=== PATIENT | male | born 1950 | race Caucasian/White ===

== ENCOUNTER → 2020-05-18 | Outpatient (CLI) | payer MEDICARE, OTHER ==
[2020-05-18 12:53] LABS: BASO % 0.5 % (0.0-1.0); EOS # 0.2 10^3/uL (0.0-0.5); EOS % 2.8 % (0.0-3.0); HEMATOCRIT 46.7 % (42.0-52.0); HEMOGLOBIN 15.4 g/dl (13.5-17.5); LYMPH # 1.5 10^3/uL (1.5-5.0); LYMPH % 25.6 % (24.0-44.0); MEAN CORPUSCULAR HEMOGLOBIN 29.7 pg (27.0-33.0); MONO # 0.6 10^3/uL (0.0-0.8); MONO % 10.6 % (0.0-5.0); NEUTROPHILS # 3.5 10^3/uL (1.5-8.5); NEUTROPHILS % 60.3 % (36.0-66.0); PLATELET COUNT, AUTOMATED 229 10^3/uL (150-450); RED BLOOD COUNT 5.19 10^6/uL (4.30-6.10); WHITE BLOOD COUNT 5.8 10^3/uL (4.0-10.0)
[2020-05-18 18:02] LABS: ALBUMIN 4.2 GM/DL (3.2-5.2); ALT/SGPT 36 U/L (12-78); BILIRUBIN,TOTAL 0.6 MG/DL (0.2-1.0); BLOOD UREA NITROGEN 27 MG/DL (7-18); CALCIUM LEVEL 9.1 MG/DL (8.8-10.2); CARBON DIOXIDE LEVEL 26 MEQ/L (21-32); CHLORIDE LEVEL 110 MEQ/L (98-107); CHOLESTEROL LEVEL 247 MG/DL (<200); CHOLESTEROL RISK RATIO 4.258 (<5); GLOMERULAR FILTRATION RATE > 60.0 (>49); GLUCOSE, FASTING 79 MG/DL (70-100); HDL CHOLESTEROL 58 MG/DL (>40); LDL CHOLESTEROL 159 MG/DL (<100); NON-HDL-C 189 MG/DL; POTASSIUM SERUM 4.2 MEQ/L (3.5-5.1); SODIUM LEVEL 144 MEQ/L (136-145); TRIGLYCERIDES LEVEL 151 MG/DL (<150)
== END ==
LOC: M WUC 10:28
PROVIDERS: ATTEND Nurse Practitioner Family
DX: I10 Essential (primary) hypertension (principal); Z13.220 Encounter for screening for lipoid disorders; Z12.5 Encounter for screening for malignant neoplasm of prostate
CPT/HCPCS: 17000; 17003; 36415; 80053; 80061; 85025; 90471; 90750; G0103; G0463

== ENCOUNTER 2021-05-26 05:36 | Emergency (ER) | payer MEDICARE, OTHER ==
[~2021-05-26] VITALS: Ht 180.3 cm; Wt 98.9 kg
[2021-05-26] MEDS ORDERED: CEPH500C PO (05:45)
[2021-05-26] MEDS ORDERED: NAPR-849 PO (05:45)
[2021-05-26] MEDS ORDERED: LISI10TA15 PO (05:45)
[2021-05-26 07:37] LABS: BASO % 0.3 % (0.0-1.0); EOS # 0.1 10^3/uL (0.0-0.5); EOS % 1.9 % (0.0-3.0); HEMATOCRIT 44.8 % (42.0-52.0); LYMPH # 1.2 10^3/uL (1.5-5.0); LYMPH % 16.4 % (24.0-44.0); MEAN CORPUSCULAR HEMOGLOBIN 29.7 pg (27.0-33.0); MEAN CORPUSCULAR HGB CONC 33.5 g/dl (32.0-36.5); MEAN CORPUSCULAR VOLUME 88.7 fl (80.0-96.0); MONO # 0.6 10^3/uL (0.0-0.8); MONO % 8.6 % (2.0-8.0); NEUTROPHILS # 5.3 10^3/uL (1.5-8.5); NEUTROPHILS % 72.5 % (36.0-66.0); PLATELET COUNT, AUTOMATED 238 10^3/uL (150-450); RED BLOOD COUNT 5.05 10^6/uL (4.30-6.10); WHITE BLOOD COUNT 7.3 10^3/uL (4.0-10.0)
[2021-05-26 08:03] LABS: ALBUMIN 3.9 GM/DL (3.2-5.2); ALT/SGPT 26 U/L (12-78); BILIRUBIN,DIRECT 0.1 MG/DL (0.0-0.2); BILIRUBIN,TOTAL 0.6 MG/DL (0.2-1.0); BLOOD UREA NITROGEN 22 MG/DL (7-18); C REACTIVE PROTEIN QUANTITATIV 2.52 MG/DL (0.00-0.30); CALCIUM LEVEL 8.9 MG/DL (8.8-10.2); CARBON DIOXIDE LEVEL 27 MEQ/L (21-32); CHLORIDE LEVEL 108 MEQ/L (98-107); CREATININE FOR GFR 1.05 MG/DL (0.70-1.30); GLOMERULAR FILTRATION RATE > 60.0 (>49); GLUCOSE, FASTING 91 MG/DL (70-100); POTASSIUM SERUM 4.2 MEQ/L (3.5-5.1); SODIUM LEVEL 140 MEQ/L (136-145); TOTAL PROTEIN 6.9 GM/DL (6.4-8.2)
[2021-05-26 09:15] LABS: ERYTHROCYTE SEDIMENTATION RATE 14 mm/hr (0-20)
[2021-05-26] MEDS ORDERED: DOXY-342 PO (10:00)
[2021-05-26 10:08] VITALS: BP 158/86
== END 2021-05-26 10:21 | disposition home or self-care (01) ==
LOC: M ED 05:36
DX: L03.032 Cellulitis of left toe (principal); I10 Essential (primary) hypertension

== ENCOUNTER → 2021-06-07 | Outpatient (CLI) | payer MEDICARE, OTHER ==
[~2021-06-07] MED LIST: CEPH500C PO; DOXY-342 PO; LISI10TA15 PO; NAPR-849 PO
[2021-06-07 12:40] LABS: BASO % 0.5 % (0.0-1.0); EOS # 0.2 10^3/uL (0.0-0.5); EOS % 3.1 % (0.0-3.0); HEMATOCRIT 44.1 % (42.0-52.0); HEMOGLOBIN 14.7 g/dl (13.5-17.5); LYMPH # 1.7 10^3/uL (1.5-5.0); LYMPH % 26.7 % (24.0-44.0); MEAN CORPUSCULAR HEMOGLOBIN 29.7 pg (27.0-33.0); MEAN CORPUSCULAR HGB CONC 33.3 g/dl (32.0-36.5); MEAN CORPUSCULAR VOLUME 89.1 fl (80.0-96.0); MONO # 0.6 10^3/uL (0.0-0.8); MONO % 9.2 % (2.0-8.0); NEUTROPHILS # 3.8 10^3/uL (1.5-8.5); NEUTROPHILS % 60.3 % (36.0-66.0); PLATELET COUNT, AUTOMATED 240 10^3/uL (150-450); RED BLOOD COUNT 4.95 10^6/uL (4.30-6.10); WHITE BLOOD COUNT 6.2 10^3/uL (4.0-10.0)
[2021-06-07 13:20] LABS: ALBUMIN 4.1 GM/DL (3.2-5.2); ALT/SGPT 27 U/L (12-78); BILIRUBIN,TOTAL 0.5 MG/DL (0.2-1.0); BLOOD UREA NITROGEN 22 MG/DL (7-18); CALCIUM LEVEL 9.1 MG/DL (8.8-10.2); CARBON DIOXIDE LEVEL 31 MEQ/L (21-32); CHLORIDE LEVEL 106 MEQ/L (98-107); CHOLESTEROL LEVEL 214 MG/DL (<200); CHOLESTEROL RISK RATIO 4.458 (<5); CREATININE FOR GFR 1.02 MG/DL (0.70-1.30); GLOMERULAR FILTRATION RATE > 60.0 (>49); GLUCOSE, FASTING 80 MG/DL (70-100); HDL CHOLESTEROL 48 MG/DL (>40); LDL CHOLESTEROL 122 MG/DL (<100); NON-HDL-C 166 MG/DL; POTASSIUM SERUM 4.5 MEQ/L (3.5-5.1); SODIUM LEVEL 141 MEQ/L (136-145); TRIGLYCERIDES LEVEL 220 MG/DL (<150)
== END ==
LOC: M WUC 08:54
PROVIDERS: ATTEND Nurse Practitioner Family
DX: I10 Essential (primary) hypertension (principal); Z12.5 Encounter for screening for malignant neoplasm of prostate; Z13.220 Encounter for screening for lipoid disorders
CPT/HCPCS: 36415; 80053; 80061; 85025; G0103

== ENCOUNTER 2021-06-16 10:33 | Inpatient (IN) | payer MEDICARE, OTHER ==
[~2021-06-16] VITALS: Ht 180.3 cm; Wt 98.4 kg
--- OUTSIDE RECORDS SUMMARY | 2021-06-16 10:40 | CCD | Continuity of Care Document ---
Author Author Hair PEREZ DPM Organization Unknown Address [address] [place] [address] Phone [phone] Care Team Providers Care Seismic Plotter Name Role Phone [facility] AUTM Problems Active Problems Provider Date Essential hypertension Onset: Social History Type Date Description Comments Sex Unknown Tobacco Use Start: Unknown Never Smoked Cigarettes Tobacco Use Start: Unknown Never Smoked Cigars Tobacco Use Start: Unknown Never Smoked A Pipe Tobacco Use Start: Unknown Never Used Smokeless Tobacco Tobacco Use Start: Unknown Patient has never smoked Allergies and adverse reactions Description No Known Drug Allergies Medications Active Medications SIG Qnty Indications Ordering Provide r Date Lisinopril 10mg Tablets Unknown Hydrochlorothiazide 12.5mg Tablets Unknown Naproxen 375mg Tablets Unknown Immunizations Description No Information Available Vital Signs Description No Information Available Results Description No Information Available Procedures Date Code Description Status 06/15/2021 85127 Office/Outpatient New Low MDM 30 -44 Minutes Completed Medical Devices Description No Information Available Encounters Type Date Location Provider Dx Diagnosis Office Visit 06/15/2021 2:00p [facility] Podiatry Je Perez DPM L03.032 Cellulitis of left toe Assessments Date Code Description Provider 06/15/2021 L03.032 Cellulitis of left toe Je elise DPM Plan of Treatment 06/15/2021 - Je Perez DPM* L03.032 Cellulitis of left toe* New Labs:* CBC W/Automated Diff, Ordered: 06/15/21 * C-Reactive Protein, Ordered: 06/15/21 * Sedimentation Rate, Ordered: 06/15/21 * New Xrays:* Toes LT, Ordered: 06/15/21 Functional Status Description No Information Available Mental Status Description No Information Available Referrals Description No Information Available
--- OUTSIDE RECORDS SUMMARY | 2021-06-16 10:40 | CCD ---
Author Author [facility] [employer] Organization [facility] [employer] Address Unknown Phone Unavailable Care Team Providers Care Welfare Centre Manager Name Role Phone Monica Taveras Unavailable PROBLEMS Type Condition ICD9-CM Code [id number] Code Onset Dates Condition S tatus W/U Status Risk SNOMED Code Notes Problem Essential hypertension I10 Active confirmed 83356198 ALLERGIES Allergen (clinical drug ingredient) Drug/Non Drug Allergy do cumented on EMR Reaction Allergy Type Onset Date Status Decongestant([facility] Code:86426-33851) HTN Drug Allergy Active ENCOUNTERS from 1950 to 2021-06-14 Encounter Location Date Provider Diagnosis [facility] [address] [facility] [phone] [place] [address] May, Monica Taveras Essential hypertension I10 ; Abscess of toe of left foot L02.612 ; Screening for hyperlipidemia Z13.220 and Prostate cancer screening Z12.5 IMMUNIZATIONS Vaccine Route Administration Date Status Influenza 18 yrs & older Flublok IM Intramuscular Aug 03, 2020 Administered Zoster 50mcg/0.5mL Shingrix IM Intramuscular Aug 03, 2020 Adm inistered Zoster 50mcg/0.5mL Shingrix IM Intramuscular May 18, 2020 Adm inistered Pneumococcal Adult 0.5mL Pneumovax 23 IM Intramuscular Aug 03 020 Administered SOCIAL HISTORY Tobacco Use: Social History Observation Description Date Details (start date - stop date) Never Smoker Sex Assigned At : Social History Observation Description Sex Assigned At Unknown Education: Question Answer Notes Level of Education: [employer] Question Answer Notes Total Score: 0 Interpretation: Alcohol Education Language: Question Answer Notes Languages spoken: Irish Church: Question Answer Notes Church No yazidi beliefs that would impact health care. Drug and Alcohol Question Answer Notes Total Score: 0 Interpretation: No problems reported Alcohol Screening: Question Answer Notes Did you have a drink containing alcohol in the past year? No Points 0 Interpretation Negative Tobacco Use: Question Answer Notes Are you a: never smoker REASON FOR REFERRAL No Information VITAL SIGNS Weight 220.0 lbs May, Weight-kg 99.79 kg May, Height 71.5 in May, BMI 30.25 kg/m2 May, Heart Rate 70 /min May, Respiratory Rate 18 /min May, Temperature 97.1 degrees Fahrenheit May, Oximetry 98 May, Blood pressure systolic 154 mm Hg May, Blood pressure diastolic 69 mm Hg May, MEDICATIONS Medication SIG (Take, Route, Frequency, Duration) Notes Start Da te End Date Status Lisinopril-hydroCHLOROthiazide 10-12.5 MG 1 tablet Ora l Once a day for high blood pressure for 90 days Activ e Doxycycline Monohydrate 100 MG 1 capsule Orally Twice a day for 7 days continue course, 14 days total Active Doxycycline Monohydrate 100 MG 1 capsule Orally bid for 14 days Jan, Not-Taking Naproxen 375 MG 1 tablet with food or milk a s needed Orally every 12 hrs for 90 days Active PROCEDURES No Information RESULTS No Results REASON FOR VISIT 1 week MEDICAL (GENERAL) HISTORY Type Description Date Surgical History Tonsillectomy Child Surgical History Hernia Repairs s/2014 Surgical History Right Shoulder Rotator Cuff Repair 2019 Hospitalization History surgery related Goals Section No Information Health Concerns No Information MEDICAL EQUIPMENT No Information MENTAL STATUS No Information FUNCTIONAL STATUS No Information ASSESSMENTS Encounter Date Diagnosis Assessment Notes Treatment Notes Treatm ent Clinical Notes May, Essential hypertension (ICD-10 - I10) Due for AWE, labs ordered for compeltion prior. May, Abscess of toe of left foot (ICD-10 - L02.612) Continue abx until completed. STRONGLY encouraged warm soaks 2-3x/day for 15-20 minutes for next 5-7 days. At this time appears markedly improved, no indication to continue abx. No flutuance noted. Plan wound care consult if non-resolving in 1 week. May, Screening for hyperlipidemia (ICD-10 - Z13.220) Due for AWE, labs ordered for compeltion prior. May, Prostate cancer screening (ICD-10 - Z12.5) Due for AWE, labs ordered for compeltion prior. PLAN OF TREATMENT Medication Medication Name Sig Start Date Stop Date Doxycycline Monohydrate 100 MG 1 capsule Orally Twice a day for 7 days Treatment Notes Assessment Notes Clinical Notes Essential hypertension Due for AWE, labs ordered for compeltion prior. Abscess of toe of left foot Continue abx until completed. STRONGLY encouraged warm soaks 2-3x/day for 15-20 minutes for next 5-7 days. At this time appears markedly improved, no indication to continue abx. No flutuance noted. Plan wound care consult if non-resolving in 1 week. Screening for hyperlipidemia Due for AWE , labs ordered for compeltion prior. Prostate cancer screening Due for AWE, l abs ordered for compeltion prior. Treatment Notes Test Name Order Date CBC with Differential 2021-06-06 Comprehensive Metabolic Profile (CMP) 2021-06-06 LIPID PANEL (CARDIAC RISK) 2021-06-06 PSA SCREENING 2021-06-06 Future Test Test Name Order Date CBC with Differential [id number] Comprehensive Metabolic Profile (CMP) [id number] LIPID PANEL (CARDIAC RISK) [id number] PSA SCREENING [id number] Next Appt Details 1 Week (wound care consult) if non-resol ving Reason: Provider Name:Monica Taveras, 10:00:00 AM, [address] [facility], , [place], [address], Insurance Providers Payer Name Payer Address Payer Phone Insured Name Patient Relati onship to Insured Coverage Start Date Coverage End Date OTHER1 [employer] MEDICARE Part A and [address] [facility] [phone] [employer]A
--- OUTSIDE RECORDS SUMMARY | 2021-06-16 10:40 | CCD ---
Author Author [facility] [employer] Organization [facility] [employer]st [employer] Address Unknown Phone Unavailable Care Team Providers Care And Rescue Fire Fighter Crash Fire Name Role Phone Zackery Cleary Unavailable PROBLEMS Type Condition ICD9-CM Code [id number] Code Onset Dates Condition S tatus W/U Status Risk SNOMED Code Notes Problem Essential hypertension I10 Active confirmed [id number] ALLERGIES Allergen (clinical drug ingredient) Drug/Non Drug Allergy do cumented on EMR Reaction Allergy Type Onset Date Status Decongestant([facility] Code:05896-39961) HTN Drug Allergy Active ENCOUNTERS from 1950 to 2021-06-09 Encounter Location Date Provider Diagnosis [facility] [address] [facility] [phone] [place] [address] 11 May, 2021 Zackery Cleary Abscess of toe of left foot L02.612 IMMUNIZATIONS Vaccine Route Administration Date Status Influenza [...] Education Language: Question Answer Notes Languages spoken: Frisian Yarsanism: Question Answer Notes Yarsanism No advent beliefs that would impact health care. Drug and Alcohol Question Answer Notes Total Score: 0 Interpretation: No problems reported Alcohol Screening: Question Answer Notes Did you have a drink containing alcohol in the past year? No Points 0 Interpretation Negative Tobacco Use: Question Answer Notes Are you a: never smoker REASON FOR REFERRAL No Information VITAL SIGNS Weight 218 lbs May, Weight-kg 98.88 kg May, Height 71.5 in May, BMI 29.98 kg/m2 May, Heart Rate 77 /min May, Respiratory Rate 17 /min May, Temperature 97.1 degrees Fahrenheit May, Oximetry 97 May, Blood pressure systolic 160 mm Hg May, Blood pressure diastolic 80 mm Hg May, MEDICATIONS Medication SIG (Take, [...] Information RESULTS No Results REASON FOR VISIT [facility] 05/26/21 MEDICAL (GENERAL) HISTORY Type Description Date Surgical History Tonsillectomy Child Surgical History Hernia Repairs /2014 Surgical History Right Shoulder Rotator Cuff Repair 2019 Hospitalization History surgery related Goals Section No Information Health Concerns No Information MEDICAL EQUIPMENT No Information MENTAL STATUS No Information FUNCTIONAL STATUS No Information ASSESSMENTS Encounter Date Diagnosis Assessment Notes Treatment Notes Treatm ent Clinical Notes May, Abscess of toe of left foot (ICD-10 - L02.612) Still having swelling, mild drainage on exam. No area of fluctulence noted. On left foot, 4th digit from midline, dorsal side. Recommend to continue warm soaks, warm compresses. Continue antibiotic for 7 more days. Call if does not continue to improve. Keep it draining. If gets any worse, not improving call office. PLAN OF TREATMENT Medication Medication Name Sig Start Date Stop Date Doxycycline Monohydrate 100 MG 1 capsule Orally Twice a day for 7 days Treatment Notes Assessment Notes Clinical Notes Abscess of toe of left foot Still having swelling, mild drainage on exam. No area of fluctulence noted. On left foot, 4th digit from midline, dorsal side. Recommend to continue warm soaks, warm compresses. Continue antibiotic for 7 more days. Call if does not continue to improve. Keep it draining. If gets any worse, not improving call office. Next Appt Details 1 week Reason: Provider Name:Monica Taveras, 10:00:00 AM, [address] [facility], , [place], [address], Insurance Providers Payer Name Payer Address Payer Phone Insured Name Patient Relati onship to Insured Coverage Start Date Coverage End Date OTHER1 [employer] MEDICARE Part A and B [address] [facility] [id number] FR[employer]A YA self
--- OUTSIDE RECORDS SUMMARY | 2021-06-16 10:40 | CCD ---
Author Author [facility] Organization [facility] Address Unknown Phone Unavailable Care Team Providers Care Furnace Room Supervisor Name Role Phone RONAK, Daniel MADRIGAL FAMILY LAW MEDIATOR Unavailable Unavailable LAROCK, Daniel MADRIGAL FAMILY LAW MEDIATOR Unavailable Unavailable LAROCK, Daniel MADRIGAL FAMILY LAW MEDIATOR Unavailable Unavailable LAROCK, Daniel MADRIGAL FAMILY LAW MEDIATOR Unavailable Unavailable LAROCK, Daniel MADRIGAL NP Unavailable Unavailable LAROCK, Daniel MADRIGAL NP Unavailable Unavailable LAROCK, Daniel MADRIGAL NP Unavailable Unavailable LAROCK, Daniel MADRIGAL NP Unavailable Unavailable LAROCK, Daniel MADRIGAL NP Unavailable Unavailable LAROCK, Daniel MADRIGAL FAMILY LAW MEDIATOR Unavailable Unavailable LAROCK, Daniel MADRIGAL FAMILY LAW MEDIATOR Unavailable Unavailable LAROCK, Daniel MADRIGAL FAMILY LAW MEDIATOR Unavailable Unavailable LAROCK, Daniel MADRIGAL FAMILY LAW MEDIATOR Unavailable Unavailable LAROCK, Daniel MADRIGAL FAMILY LAW MEDIATOR Unavailable Unavailable LAROCK, Daniel MADRIGAL NP Unavailable Unavailable LAROCK, Daniel MADRIGAL FAMILY LAW MEDIATOR Unavailable Unavailable LAROCK, Daniel MADRIGAL FAMILY LAW MEDIATOR Unavailable Unavailable LAROCK, Daniel MADRIGAL FAMILY LAW MEDIATOR Unavailable Unavailable LAROCK, Daniel MADRIGAL FAMILY LAW MEDIATOR Unavailable Unavailable LAROCK, Danile MADRIGAL FAMILY LAW MEDIATOR Unavailable Unavailable LAROCK, Daniel MADRIGAL FAMILY LAW MEDIATOR Unavailable Unavailable LAROCK, Daniel MADRIGAL FAMILY LAW MEDIATOR Unavailable Unavailable FORNI, R NGOC DPM Unavailable Unavailable FORNI, R NGOC DPM Unavailable Unavailable FORNI, R NGOC DPM Unavailable Unavailable FORNI, R NGOC DPM Unavailable Unavailable FORNI, R NGOC DPM Unavailable Unavailable FORNI, R NGOC DPM Unavailable Unavailable FORNI, R NGOC DPM Unavailable Unavailable FORNI, R NGOC DPM Unavailable Unavailable FORNI, R NGOC DPM Unavailable Unavailable FORNI, R NGOC DPM Unavailable Unavailable FORNI, R NGOC DPM Unavailable Unavailable FORNI, R NGOC DPM Unavailable Unavailable FORNI, R NGOC DPM Unavailable Unavailable FORNI, R NGOC DPM Unavailable Unavailable FORNI, R NGOC DPM Unavailable Unavailable FORNI, R NGOC DPM Unavailable Unavailable FORNI, R NGOC DPM Unavailable Unavailable FORNI, R NGOC DPM Unavailable Unavailable FORNI, R NGOC DPM Unavailable Unavailable FORNI, R NGOC DPM Unavailable Unavailable Re-disclosure Warning The records that you are about to access may contain information from federally-assisted alcohol or drug abuse programs. If such information is present, then the following federally mandated warning applies: This information has been disclosed to you from records protected by federal confidentiality rules (42 CFR part 2). The federal rules prohibit you from making any further disclosure of this information unless further disclosure is expressly permitted by the written consent of the person to whom it pertains or as otherwise permitted by 42 CFR part 2. A general authorization for the release of medical or other information is NOT sufficient for this purpose. The Federal rules restrict any use of the information to criminally investigate or prosecute any alcohol or drug abuse patient.The records that you are about to access may contain highly sensitive health information, the redisclosure of which is protected by Article 27-F of the [facility] Public Health law. If you continue you may have access to information: Regarding HIV / AIDS; Provided by facilities licensed or operated by the [facility] Office of Mental Health; or Provided by the [facility] Office for People With Developmental Disabilities. If such information is present, then the following [facility] mandated warning applies: This information has been disclosed to you from confidential records which are protected by state law. State law prohibits you from making any further disclosure of this information without the specific written consent of the person to whom it pertains, or as otherwise permitted by law. Any unauthorized further disclosure in violation of state law may result in a fine or group home sentence or both. A general authorization for the release of medical or other information is NOT sufficient authorization for further disc losure. Encounters Encounter Providers Location Date Indications Data Source(s ) Outpatient Attender: NGOC PEREZ DPM Family Practice 06/15/2021 0 2:00:00 PM EDT [facility] ([facility]) Outpatient Attender: NGOC PEREZ DPM 2020 01:55:00 PM EDT - 06/15/2021 01:55:00 PM EDT [facility] Outpatient [address] [facility] [id number] 06/06/2021 12:00:00 AM EDT [facility] [place]patient [address] [facility] [address] 05/30/2021 12:00:00 AM EDT eCW1 [facility]) Outpatient Attender: ROHAN SIMONS NP 08/2020 08:16:47 PM EDT - 05/20/2021 09:30:56 PM EDT [facility] ([facility] ) [place] [address] [facility] [address] 12/27/2020 12:00:00 AM EDT eCW1 ([facility]) [place]patient [address] [facility] [address] 08/03/2020 12:00:00 AM EST eCW1 ([facility]) [place] [address] [facility] [address] 06/02/2020 12:00:00 AM EDT eCW1 ([facility]) Outpatient [address] [facility] [address] 05/18/2020 12:00:00 AM EDT eCW1 ([facility]) [place] [address] [facility] [address] 05/18/2020 12:00:00 AM EDT eCW1 ([facility]) Immunizations Vaccine Date Status Description Data Source(s) COVID-19 VACCINE Moderna 10/30/2020 12:00:00 AM EST completed [facility] Vaccine Series Complete: YESThis Data wa s Submitted to [facility] Via [place]Georgina Goodman. COVID-19 VACCINE Moderna 10/01/2020 12:00:00 AM EST completed [facility] Vaccine Series Complete: NOThis Data was Submitted to [facility] Via DIIME. pneumococcal polysaccharide PPV23 08/03/2020 10:54:00 AM EST comple carlos [facility] pneumococcal polysaccharide PPV23 08/03/2020 10:54:00 AM EST comple carlos [facility]CW[facility]) pneumococcal polysaccharide PPV23 08/03/2020 10:54:00 AM EST comple carlos eCW1 ([facility]) pneumococcal polysaccharide PPV23 08/03/2020 10:54:00 AM EST comple carlos eCW1 ([facility]) Zoster 50mcg/0.5mL Shingrix 08/03/2020 10:53:00 AM EST completed eCW1 ([facility]) Zoster 50mcg/0.5mL Shingrix 08/03/2020 10:53:00 AM EST completed eCW1 [facility]) Zoster 50mcg/0.5mL Shingrix 08/03/2020 10:53:00 AM EST completed eCW1 [facility]) Zoster 50mcg/0.5mL (Shingrix) 08/03/2020 10:53:00 AM EST completed eCW1 [facility]) influenza, recombinant, quadrIvalent,injectable, prese rvative free 08/03/2020 10:52:00 AM EST completed eCW1 [facility]) influenza, recombinant, quadrIvalent,injectable, prese rvative free 08/03/2020 10:52:00 AM EST completed eCW1 [facility]) influenza, recombinant, quadrIvalent,injectable, prese rvative free 08/03/2020 10:52:00 AM EST completed eCW1 [facility]) influenza, recombinant, quadrIvalent,injectable, prese rvative free 08/03/2020 10:52:00 AM EST completed eCW1 [facility] Zoster 50mcg/0.5mL Shingrix 05/18/2020 02:01:00 PM EDT completed eCW1 ([facility]) Zoster 50mcg/0.5mL Shingrix 05/18/2020 02:01:00 PM EDT completed eCW1 ([facility]) Zoster 50mcg/0.5mL Shingrix 05/18/2020 02:01:00 PM EDT completed eCW1 ([facility]) Zoster 50mcg/0.5mL (Shingrix) 05/18/2020 02:01:00 PM EDT completed eCW1 ([facility]) Zoster 50mcg/0.5mL (Shingrix) 05/18/2020 02:01:00 PM EDT completed eCW1 ([facility]) Zoster 50mcg/0.5mL (Shingrix) 05/18/2020 02:01:00 PM EDT completed eCW1 ([facility]) Zoster 50mcg/0.5mL (Shingrix) 05/18/2020 02:01:00 PM EDT completed eCW1 [facility]) Medications No Information Insurance Providers Payer name Policy type / Coverage type Policy ID Covered libertarian ID Covered libertarian's relationship to murphy Policy Murphy Plan Information [facility] Medicare Medicare Part B [id number] Self [id number] MEDICARE [id number] SP [id number] MEDICARE OTHER [place] [id number] 18 [id number] MEDICARE PART A [facility] [id number] 18 [id number] SP [id number] [facility] EMPL [id number] SP [id number] [facility] [id number] SP [id number] MEDICARE [id number] SP [id number] Q33 Problems, Conditions, and Diagnoses Code Display Name Description Problem Type Effective Dates Data Source(s) I10 [id number] Essential hypertension Problem 05/18/2020 12 :00:00 AM EDT eCW1 ([facility]) Surgeries/Procedures Procedure Description Date Indications Data Source(s) OFFICE OUTPATIENT NEW 30 MINUTES 06/15/2021 12:00:00 A M EDT [facility] ([facility]) Immunization: Shingrix 50mcg/0.5mL IM (Zoster) 12:00:00 AM EST eCW1 ([facility]) Immunization: Shingrix 50mcg/0.5mL IM (Zoster) 020 12:00:00 AM EDT eCW1 ([facility]) Results ID Date Data Source [id number] 06/15/2021 08:32:00 PM EDT [facility] [address] [place] [address] PHONE: [phone] FAX: [phone] Name .................. : ZOË Real Acct Number.................. : [id number] ROOM. ................. : Number ................... : [id number] Stay type ............. : CLINIC Discharge Date......... ... : 06/15/21 Admit Date ......... : 06/15/21 Admit Phys .................... : MARISSA Date of ....... : 1950 Family Phys ................... : Phone .................. : [phone] Age ................................ : 70 Film# .................. .:[id number] Sex ................................. : M Unsigned transcriptions are preliminary reports and do not represent a medical or legal document MARISSA [id number] COMPLETE:06/15/21 17:08 [facility] [id number] Reason for Exam: CELLULITIS OF 4TH TOE RADIOGRAPHS OF THE LEFT FOURTH TOE 4 VIEWS INDICATION: Cellulitis fourth toe COMPARISON: None. FINDINGS: Marked diffuse soft tissue swelling of the fourth toe. No soft tissue gas. DIP joint is dislocated toward the plantar surface. The PIP joint is subluxed dorsally. Marked erosive changes with bone destruction seen in the middle and distal phalanges. Mild erosive changes are seen in the head of the proximal phalanx. Overall bony mineralization appears normal. No soft tissue calcifications. IMPRESSION: Erosive changes and bony destruction of the middle and distal phalanges with dislocation of the DIP joint and subluxation of the PIP joint. Differential diagnosis includes septic arthritis, osteomyelitis and severe noninfectious inflammatory arthritis. Electronically Reviewed and Signed By Anil Hart MD , 06/15/21 20:32, NGUYỄN Transcribe Initials: LAURIE , Transcribe Date: 06/15/21 18:01, Dictation Date: Page 1 of 1 Name Value Range Interpretation Code Description Data Jaleesa rce(s) Supporting Document(s) ID Date Data Source [id number] 06/15/2021 04:44:00 PM EDT [facility] Name Value Range Interpretation Code Description Data Jaleesa rce(s) Supporting Document(s) Erythrocyte sedimentation rate by Westergren method 14 mm/hr 0 - 20 [facility] SED RATE REENTER 14 [facility] ID Date Data Source [id number] 06/15/2021 03:58:00 PM EDT [facility] Name Value Range Interpretation Code Description Data Jaleesa rce(s) Supporting Document(s) C reactive protein [Mass/volume] in Serum or Plasma by High sensitivity method 8.42 MG/L 1.00 - 3.00 H [facility] CDC/S HS-CRP CUT-OFF: RELATIVE RISK: <1.0 mg/L Low 1.0 - 3.0 mg/L Average >3.0 mg/L High Optimally, the average of HS-CRP results repeated two weeks apart should be used for risk assessment. ID Date Data Source [id number] 06/15/2021 03:55:00 PM EDT [facility] Name Value Range Interpretation Code Description Data Jaleesa rce(s) Supporting Document(s) CBC W/AUTOMATED DIFF [facility] COMPLETE BLOOD COUNT Leukocytes [#/volume] in Blood by Automated count 7.7 10^3/uL 4.2 - 1 1.0 [facility] Erythrocytes [#/volume] in Blood by Automated count 5.12 10^6/uL 4. 50 - 6.30 [facility] Hemoglobin [Mass/volume] in Blood 15.1 g/dL 14.0 - 16.0 [facility] Hematocrit [Volume Fraction] of Blood by Automated count 45.1 % 4 1.0 - 51.0 [facility] Erythrocyte mean corpuscular volume [Entitic volume] by Auto mated count 88.1 fL 80.0 - 94.0 [facility] Erythrocyte mean corpuscular hemoglobin [Entitic mass] by Automated count 29.5 pg 27.0 - 34.0 [facility] Erythrocyte mean corpuscular hemoglobin concentration [Mass/volume] by Automated count 33.5 g/dL 31.0 - 36.0 [facility] Erythrocyte distribution width [Ratio] by Automated count 12.6 % 11.5 - 14.8 [facility] Platelets [#/volume] in Blood by Automated count 253 10^3/uL 150 - 45 0 [facility] Platelet mean volume [Entitic volume] in Blood by Automated count 8.6 fL 7.4 - 10.4 [facility] Neutrophils/100 leukocytes in Blood by Automated count 68.6 % 37. 0 - 80.0 [facility] Lymphocytes/100 leukocytes in Blood by Manual count 18.5 % 25.0 - 40.0 L [facility] Monocytes/100 leukocytes in Blood by Automated count 10.3 % 3.0 - 8.0 H [facility] Eosinophils/100 leukocytes in Blood by Automated count 2.2 % 0.0 - 7.0 [facility] Basophils/100 leukocytes in Blood by Automated count 0.3 % 0.0 - 2.0 [facility] %IG 0.1 % 0.0 - 0.0 [facility] 0.0 % 0.0 - 0.0 [facility] al Neutrophils [#/volume] in Blood by Automated count 5.27 10^3/uL 2.00 - 6.90 [facility] Lymphocytes [#/volume] in Blood by Automated count 1.42 10^3/uL 0.60 - 3.40 [facility] Monocytes [#/volume] in Blood by Automated count 0.79 10^3/uL 0.00 - 0.90 [facility] Eosinophils [#/volume] in Blood by Automated count 0.17 10^3/uL 0.00 - 0.70 [facility] Basophils [#/volume] in Blood by Automated count 0.02 10^3/uL 0.00 - 0.20 [facility] #IG 0.01 10^3/uL 0.00 - 0.10 [facility] #NRBC 0.00 10^3/uL 0.00 - 0.00 [facility] MANUAL DIFF NOT INDICATED [facility] RBC MORPH NOT INDICATED [facility] Procedure Social History Code Duration Value Status Description Data Source(s ) Smoking 06/06/2021 12:00:00 AM EDT Never Smoker completed Never S moker [facility] ([facility]) Smoking 06/06/2021 12:00:00 AM EDT Never Smoker completed Never S moker eCW1 ([facility]) Smoking 05/18/2020 12:00:00 AM EDT Never Smoker completed Never S moker eCW1 ([facility]) Smoking 05/18/2020 12:00:00 AM EDT Never Smoker completed Never S moker eCW1 ([facility]) Smoking 05/18/2020 12:00:00 AM EDT Never Smoker completed Never S moker eCW1 ([facility]) Smoking 05/18/2020 12:00:00 AM EDT Never Smoker completed Never S moker eCW1 ([facility]) Smoking 05/18/2020 12:00:00 AM EDT Never Smoker completed Never S moker eCW1 ([facility]) Vital Signs ID Date Data Source UNK Name Value Range Interpretation Code Description Data Source(s) Body weight 220.0 [lb_av] 220.0 [lb_av] eCW1 ([facility]) Body weight 99.79 kg 99.79 kg W1 ([facility]) Body height 71.5 [in_i] 71.5 [in_i] W1 ([facility]) Body mass index (BMI) [Ratio] 30.25 kg/m2 30.25 kg/m2 [facility] Heart rate 70 /min 70 /min eCW1 ([facility]) Respiratory rate 18 /min 18 /min eCW1 ([facility]) Body temperature 97.1 [degF] 97.1 [degF] eCW1 ( [facility] Systolic blood pressure 154 mm[Hg] 154 mm[Hg] e CW1 ([facility]) Diastolic blood pressure 69 mm[Hg] 69 mm[Hg] eCW1 ([facility]) Body weight 218 [lb_av] 218 [lb_av] eCW1 ([facility]) Body weight 98.88 kg 98.88 kg eCW1 ([facility]) Body height 71.5 [in_i] 71.5 [in_i] eCW1 ([facility]) Body mass index (BMI) [Ratio] 29.98 kg/m2 29.98 kg/m2 eCW1 ([facility]) Heart rate 77 /min 77 /min eCW1 ([facility]) Respiratory rate 17 /min 17 /min eCW1 ([facility]) Body temperature 97.1 [degF] 97.1 [degF] eCW1 ( [facility]) Systolic blood pressure 160 mm[Hg] 160 mm[Hg] e CW1 ([facility]) Diastolic blood pressure 80 mm[Hg] 80 mm[Hg] eCW1 ([facility]) Heart rate 63 /min 63 /min eCW1 ([facility]) Systolic blood pressure 153 mm[Hg] 153 mm[Hg] e CW1 ([facility]) Body weight 219.8 [lb_av] 219.8 [lb_av] eCW1 ([facility]) Diastolic blood pressure 84 mm[Hg] 84 mm[Hg] eCW1 ([facility]) Body temperature 97.5 [degF] 97.5 [degF] eCW1 ( [facility]) Respiratory rate 17 /min 17 /min eCW1 ([facility]) Body height 71.5 [in_i] 71.5 [in_i] [facility] ([facility]) Body mass index (BMI) [Ratio] 30.23 kg/m2 30.23 kg/m2 [facility] ([facility])
--- OUTSIDE RECORDS SUMMARY | 2021-06-16 11:39 | CCD ---
Author Author [facility] Organization [facility] Address Unknown Phone Unavailable Care Team Providers Care Electrician Marine Name Role Phone RONAK, Daniel MADRIGAL SPLITTER OPERATOR Unavailable Unavailable LAROCK, Daniel MADRIGAL SPLITTER OPERATOR Unavailable Unavailable LAROCK, Daniel MADRIGAL SPLITTER OPERATOR Unavailable Unavailable LAROCK, Daniel MADRIGAL SPLITTER OPERATOR Unavailable Unavailable LAROCK, Daniel MADRIGAL NP Unavailable Unavailable LAROCK, Daniel MADRIGAL NP Unavailable Unavailable LAROCK, Daniel MADRIGAL NP Unavailable Unavailable LAROCK, Daniel MADRIGAL NP Unavailable Unavailable LAROCK, Daniel MADRIGAL NP Unavailable Unavailable LAROCK, Daniel MADRIGAL SPLITTER OPERATOR Unavailable Unavailable LAROCK, Daniel MADRIGAL SPLITTER OPERATOR Unavailable Unavailable LAROCK, Daniel MADRIGAL SPLITTER OPERATOR Unavailable Unavailable LAROCK, Daniel MADRIGAL SPLITTER OPERATOR Unavailable Unavailable LAROCK, Daniel MADRIGAL SPLITTER OPERATOR Unavailable Unavailable LAROCK, Daniel MADRIGAL NP Unavailable Unavailable LAROCK, Daniel MADRIGAL SPLITTER OPERATOR Unavailable Unavailable LAROCK, Daniel MADRIGAL SPLITTER OPERATOR Unavailable Unavailable LAROCK, Daniel MADRIGAL SPLITTER OPERATOR Unavailable Unavailable LAROCK, Daniel MADRIGAL SPLITTER OPERATOR Unavailable Unavailable LAROCK, Daniel MADRIGAL SPLITTER OPERATOR Unavailable Unavailable LAROCK, Daniel MADRIGAL SPLITTER OPERATOR Unavailable Unavailable LAROCK, Daniel MADRIGAL SPLITTER OPERATOR Unavailable Unavailable FORNI, R NGOC DPM Unavailable [...] is protected by Article 27-F of the [facility] Public Health law. If you continue you may have access to information: Regarding HIV / AIDS; Provided by facilities licensed or operated by the [facility] Office of Mental Health; or Provided by the [facility] Office for People With Developmental Disabilities. If such information is present, then the following [facility] mandated warning applies: This information has [...] law may result in a fine or fpc sentence or both. A general authorization for the release of medical or other information is NOT sufficient authorization for further disc losure. Encounters Encounter Providers Location Date Indications Data Source(s ) Outpatient Attender: NGOC PEREZ DPM Family Practice 06/15/2021 0 2:00:00 PM EDT MEDWILDA ([facility]) Outpatient Attender: NGOC PEREZ DPM 2020 01:55:00 PM EDT - 06/15/2021 01:55:00 PM EDT [facility] Outpatient [address] [facility] [address] 06/06/2021 12:00:00 AM EDT eCW1 ([facility]) Outpatient [address] [facility] [address] 05/30/2021 12:00:00 AM EDT eCW1 [facility]) Outpatient Attender: ROHAN SIMONS NP 08/2020 08:16:47 PM EDT - 05/20/2021 09:30:56 PM EDT [facility]Tap ([facility] ) Unknown [address] [facility] [address] 12/27/2020 12:00:00 AM EDT eCW1 [facility] Outpatient [address] [facility] [address] 08/03/2020 12:00:00 AM EST eCW1 ([facility]) Unknown [address] [facility] [address] 06/02/2020 12:00:00 AM EDT eCW1 [facility] Outpatient [address] [facility] [address] 05/18/2020 12:00:00 AM EDT eCW1 [facility]) Unknown [address] [facility] [address] 05/18/2020 12:00:00 AM EDT eCW1 [facility]) Immunizations Vaccine Date Status Description Data Source(s) COVID-19 VACCINE Moderna 10/30/2020 12:00:00 AM EST completed [facility] Vaccine Series Complete: YESThis Data wa s Submitted to [facility] Via [employer]. COVID-19 VACCINE Moderna 10/01/2020 12:00:00 AM EST completed [facility] Vaccine Series Complete: NOThis Data was Submitted to [facility] Via Songfor. pneumococcal polysaccharide PPV23 08/03/2020 10:54:00 AM EST comple carlos eCW1 ([facility]) pneumococcal polysaccharide PPV23 08/03/2020 10:54:00 AM EST comple carlos eCW1 ([facility]) pneumococcal polysaccharide PPV23 08/03/2020 10:54:00 AM EST comple carlos eCW1 ([facility]) pneumococcal polysaccharide PPV23 08/03/2020 10:54:00 AM EST comple carlos eCW1 ([facility]) Zoster 50mcg/0.5mL Shingrix 08/03/2020 10:53:00 AM EST completed eCW1 ([facility]) Zoster 50mcg/0.5mL Shingrix 08/03/2020 10:53:00 AM EST completed eCW1 ([facility]) Zoster 50mcg/0.5mL Shingrix 08/03/2020 10:53:00 AM EST completed eCW1 ([facility]) Zoster 50mcg/0.5mL (Shingrix) 08/03/2020 10:53:00 AM EST completed eCW1 ([facility]) influenza, recombinant, quadrIvalent,injectable, prese rvative free 08/03/2020 10:52:00 AM EST completed eCW1 ([facility]) influenza, recombinant, quadrIvalent,injectable, prese rvative free 08/03/2020 10:52:00 AM EST completed eCW1 ([facility]) influenza, recombinant, quadrIvalent,injectable, prese rvative free 08/03/2020 10:52:00 AM EST completed eCW1 ([facility]) influenza, recombinant, quadrIvalent,injectable, prese rvative free 08/03/2020 10:52:00 AM EST completed eCW1 ([facility]) Zoster 50mcg/0.5mL Shingrix 05/18/2020 02:01:00 PM EDT completed eCW1 ([facility]) Zoster 50mcg/0.5mL Shingrix 05/18/2020 02:01:00 PM EDT completed eCW1 ([facility]) Zoster 50mcg/0.5mL Shingrix 05/18/2020 02:01:00 PM EDT completed eCW1 ([facility]) Zoster 50mcg/0.5mL (Shingrix) 05/18/2020 02:01:00 PM EDT completed eCW1 ([facility]) Zoster 50mcg/0.5mL (Shingrix) 05/18/2020 02:01:00 PM EDT completed eCW1 ([facility]) Zoster 50mcg/0.5mL (Shingrix) 05/18/2020 02:01:00 PM EDT completed eCW1 ([facility]) Zoster 50mcg/0.5mL (Shingrix) 05/18/2020 02:01:00 PM EDT completed eCW1 ([facility]) Medications No Information Insurance Providers Payer name Policy type / Coverage type Policy ID Covered constitution party ID Covered constitution party's relationship to murphy Policy Murphy Plan Information [facility] Medicare Medicare Part B [id number] Self [id number] MEDICARE [id number] SP [id number] MEDICARE OTHER [place] [id number] 18 [id number] MEDICARE PART A [facility] [id number] 18 [id number] SP [id number] [facility] EMPL [id number] SP [id number] [facility] [id number] SP [id number] MEDICARE [id number] SP [id number] Problems, Conditions, and Diagnoses Code Display Name Description Problem Type Effective Dates Data Source(s) I10 [id number] Essential hypertension Problem 05/18/2020 12 :00:00 AM EDT eCW1 ([facility]) Surgeries/Procedures Procedure Description Date Indications Data Source(s) OFFICE OUTPATIENT NEW 30 MINUTES 06/15/2021 12:00:00 A M EDT MEDENT ([facility]) Immunization: Shingrix 50mcg/0.5mL IM (Zoster) 12:00:00 AM EST eCW1 ([facility]) Immunization: Shingrix 50mcg/0.5mL IM (Zoster) 020 12:00:00 AM EDT eCW1 ([facility]) Results ID Date Data Source [id number] 06/15/2021 08:32:00 PM EDT [facility] [address] [place] [address] PHONE: [phone] FAX: [phone] Name .................. : ZOË Real Acct Number.................. : [id number] ROOM. ................. : Number ................... : [id number] Stay type ............. : CLINIC Discharge Date......... ... : 06/15/21 Admit Date ......... : 06/15/21 Admit Phys .................... : MARISSA Date of ....... : 1950 Family Phys ................... : Phone .................. : [phone] Age ................................ : 70 Film# .................. .:[id number] Sex ................................. : M Unsigned transcriptions are preliminary reports and do not represent a medical or legal document MARISSA [id number] COMPLETE:06/15/21 17:08 [facility] [id number] Reason for Exam: CELLULITIS OF 4TH TOE [...] rce(s) Supporting Document(s) ID Date Data Source [id number] 06/15/2021 04:44:00 PM EDT [facility] Name Value Range Interpretation Code Description Data Jaleesa rce(s) Supporting Document(s) Erythrocyte sedimentation rate by Westergren method 14 mm/hr 0 - 20 [facility] SED RATE REENTER 14 [facility] ID Date Data Source [id number] 06/15/2021 03:58:00 PM EDT [facility] Name Value Range Interpretation Code Description Data Jaleesa rce(s) Supporting Document(s) C reactive protein [Mass/volume] in Serum or Plasma by High sensitivity method 8.42 MG/L 1.00 - 3.00 H [facility] CDC/S HS-CRP CUT-OFF: RELATIVE RISK: <1.0 mg/L Low 1.0 - 3.0 mg/L Average >3.0 mg/L High Optimally, the average of HS-CRP results repeated two weeks apart should be used for risk assessment. ID Date Data Source [id number] 06/15/2021 03:55:00 PM EDT [facility] Name Value Range Interpretation Code Description Data Jaleesa rce(s) Supporting Document(s) CBC W/AUTOMATED DIFF [facility] COMPLETE BLOOD COUNT Leukocytes [#/volume] in Blood by Automated count 7.7 10^3/uL 4.2 - 1 1.0 [facility] Erythrocytes [#/volume] in Blood by Automated count 5.12 10^6/uL 4. 50 - 6.30 [facility] Hemoglobin [Mass/volume] in Blood 15.1 g/dL 14.0 - 16.0 [facility] Hematocrit [Volume Fraction] of Blood by Automated count 45.1 % 4 1.0 - 51.0 [facility] Erythrocyte mean corpuscular volume [Entitic volume] by Auto mated count 88.1 fL 80.0 - 94.0 [facility] Erythrocyte mean corpuscular hemoglobin [Entitic mass] by Automated count 29.5 pg 27.0 - 34.0 [facility] Erythrocyte mean corpuscular hemoglobin concentration [Mass/volume] by Automated count 33.5 g/dL 31.0 - 36.0 [facility] Erythrocyte distribution width [Ratio] by Automated count 12.6 % 11.5 - 14.8 [facility] Platelets [#/volume] in Blood by Automated count 253 10^3/uL 150 - 45 0 [facility] Platelet mean volume [Entitic volume] in Blood by Automated count 8.6 fL 7.4 - 10.4 [facility] Neutrophils/100 leukocytes in Blood by Automated count 68.6 % 37. 0 - 80.0 [facility] Lymphocytes/100 leukocytes in Blood by Manual count 18.5 % 25.0 - 40.0 L [facility] Monocytes/100 leukocytes in Blood by Automated count 10.3 % 3.0 - 8.0 H [facility] Eosinophils/100 leukocytes in Blood by Automated count 2.2 % 0.0 - 7.0 [facility] Basophils/100 leukocytes in Blood by Automated count 0.3 % 0.0 - 2.0 [facility] %IG 0.1 % 0.0 - 0.0 [facility] %[facility] 0.0 % 0.0 - 0.0 [facility] al Neutrophils [#/volume] in Blood by Automated count 5.27 10^3/uL 2.00 - 6.90 [facility] Lymphocytes [#/volume] in Blood by Automated count 1.42 10^3/uL 0.60 - 3.40 [facility] Monocytes [#/volume] in Blood by Automated count 0.79 10^3/uL 0.00 - 0.90 [facility] Eosinophils [#/volume] in Blood by Automated count 0.17 10^3/uL 0.00 - 0.70 [facility] Basophils [#/volume] in Blood by Automated count 0.02 10^3/uL 0.00 - 0.20 [facility] #IG 0.01 10^3/uL 0.00 - 0.10 [facility] #NRBC 0.00 10^3/uL 0.00 - 0.00 [facility] MANUAL DIFF NOT INDICATED [facility] RBC MORPH NOT INDICATED [facility] Procedure Social History Code Duration Value Status Description Data Source(s ) Smoking 06/06/2021 12:00:00 AM EDT Never Smoker completed Never S moker eCW1 ([facility]) Smoking 06/06/2021 12:00:00 AM EDT Never Smoker completed Never S moker eCW1 ([facility]) Smoking 05/18/2020 12:00:00 AM EDT Never Smoker completed Never S moker eCW1 ([facility]) Smoking 05/18/2020 12:00:00 AM EDT Never Smoker completed Never S moker eCW1 ([facility]) Smoking 05/18/2020 12:00:00 AM EDT Never Smoker completed Never S moker eCW1 ([facility]) Smoking 05/18/2020 12:00:00 AM EDT Never Smoker completed Never S moker eCW1 ([facility]) Smoking 05/18/2020 12:00:00 AM EDT Never Smoker completed Never S moker eCW1 ([facility]) Vital Signs ID Date Data Source UNK Name Value Range Interpretation Code Description Data Source(s) Body weight 220.0 [lb_av] 220.0 [lb_av] eCW1 ([facility]) Body weight 99.79 kg 99.79 kg W1 ([facility]) Body height 71.5 [in_i] 71.5 [in_i] W1 (On license of [facility]) Body mass index (BMI) [Ratio] 30.25 kg/m2 30.25 kg/m2 [facility] ([facility]) Heart rate 70 /min 70 /min eCW1 ([facility]) Respiratory rate 18 /min 18 /min eCW1 ([facility]) Body temperature 97.1 [degF] 97.1 [degF] eCW1 ( [facility]) Systolic blood pressure 154 mm[Hg] 154 mm[Hg] e CW1 ([facility]) Diastolic blood pressure 69 mm[Hg] 69 mm[Hg] eCW1 ([facility]) Body weight 218 [lb_av] 218 [lb_av] eCW1 (On license of [facility]) Body weight 98.88 kg 98.88 kg eCW1 ([facility]) Body height 71.5 [in_i] 71.5 [in_i] eCW1 (On license of [facility]) Body mass index (BMI) [Ratio] 29.98 kg/m2 29.98 kg/m2 eCW1 ([facility]) Heart rate 77 /min 77 /min eCW1 ([facility]) Respiratory rate 17 /min 17 /min eCW1 ([facility]) Body temperature 97.1 [degF] 97.1 [degF] eCW1 ( [facility]) Systolic blood pressure 160 mm[Hg] 160 mm[Hg] e CW1 ([facility]) Diastolic blood pressure 80 mm[Hg] 80 mm[Hg] eCW1 ([facility]) Heart rate 63 /min 63 /min eCW1 ([facility]) Body temperature 97.5 [degF] 97.5 [degF] eCW1 ( [facility]) Systolic blood pressure 153 mm[Hg] 153 mm[Hg] e CW1 ([facility]) Diastolic blood pressure 84 mm[Hg] 84 mm[Hg] eCW1 ([facility]) Body weight 219.8 [lb_av] 219.8 [lb_av] eCW1 ([facility]) Body height 71.5 [in_i] 71.5 [in_i] eCW1 (On license of [facility]) Respiratory rate 17 /min 17 /min eCW1 ([facility]) Body mass index (BMI) [Ratio] 30.23 kg/m2 30.23 kg/m2 eCW1 ([facility])
[2021-06-16 14:12] LABS: BASO % 0.4 % (0.0-1.0); EOS # 0.3 10^3/uL (0.0-0.5); EOS % 4.1 % (0.0-3.0); HEMATOCRIT 47.5 % (42.0-52.0); HEMOGLOBIN 15.6 g/dl (13.5-17.5); LYMPH # 1.4 10^3/uL (1.5-5.0); LYMPH % 19.7 % (24.0-44.0); MEAN CORPUSCULAR HEMOGLOBIN 29.4 pg (27.0-33.0); MEAN CORPUSCULAR HGB CONC 32.8 g/dl (32.0-36.5); MEAN CORPUSCULAR VOLUME 89.6 fl (80.0-96.0); MONO # 0.9 10^3/uL (0.0-0.8); MONO % 12.6 % (2.0-8.0); NEUTROPHILS # 4.3 10^3/uL (1.5-8.5); NEUTROPHILS % 62.5 % (36.0-66.0); PLATELET COUNT, AUTOMATED 265 10^3/uL (150-450); WHITE BLOOD COUNT 6.9 10^3/uL (4.0-10.0)
--- NOTE | 2021-06-16 14:25 | REP ---
INDICATION: left 4th toe redness/swelling COMPARISON: None. TECHNIQUE: Four views left toes. FINDINGS: There is significant soft tissue swelling of the 4th toe. There is erosion and cortical destruction of the 4th middle phalanx and base of the distal phalanx. There is dislocation at the distal interphalangeal joint. IMPRESSION: Cortical erosion and destruction of the 4th middle and distal phalanges with associated soft tissue swelling and dislocation at the distal interphalangeal joint. Given the history of redness and swelling this likely represent osteomyelitis. <Electronically signed by Zhou Malik > 06/16/21 [id number]
[2021-06-16 14:32] LABS: ERYTHROCYTE SEDIMENTATION RATE 15 mm/hr (0-20)
[2021-06-16 14:42] LABS: BLOOD UREA NITROGEN 23 MG/DL (7-18); C REACTIVE PROTEIN QUANTITATIV 1.58 MG/DL (0.00-0.30); CALCIUM LEVEL 9.4 MG/DL (8.8-10.2); CARBON DIOXIDE LEVEL 31 MEQ/L (21-32); CHLORIDE LEVEL 106 MEQ/L (98-107); CREATININE FOR GFR 1.05 MG/DL (0.70-1.30); GLOMERULAR FILTRATION RATE > 60.0 (>49); GLUCOSE, FASTING 77 MG/DL (70-100); POTASSIUM SERUM 4.5 MEQ/L (3.5-5.1); SODIUM LEVEL 140 MEQ/L (136-145); URIC ACID 7.4 MG/DL (3.5-7.2)
[2021-06-16] MEDS ORDERED: PIPERACILLIN/TAZOBACTAM SOD 3.375 GM in D5W MINI-BAG PLUS 50 ML IV ONE (14:55)
[2021-06-16] MEDS ORDERED: VANCOMYCIN HCL 2,000 MG in D5W 500 ML IV ONE (14:55)
[2021-06-16] MEDS ORDERED: VANCOMYCIN HCL 1,000 MG, VIAL MATE ADAPTER 1 EACH in NS 250 ML IV ONE ×6 (15:00)
[2021-06-16] MEDS ORDERED: VANCOMYCIN HCL 1,000 MG, VIAL MATE ADAPTER 1 EACH in NS 250 ML IV SCH (15:10)
--- NOTE | 2021-06-16 15:21 | HPEPDOC ---
[facility] Medical History & Physical Date of Admission Jun 16, 2021 Date of Service: Jun 16, 2021 History and Physical CHIEF COMPLAINT: LEFT TOE OSTEOMYELITIS HISTORY OF PRESENT ILLNESS: 70-year-old male sent to ED for findings of osteomyelitis with his left 4th toe on outpatient imaging. Patient's history goes back to roughly 6 months ago where he states he stubbed his toe. However, over the last 4 weeks he has had increasing erythema and pain. He was seen in the ER on 05/26/2021 and discharged home with Keflex and doxycycline. His symptoms continue to worsen and he was seen by company accountant in [place] as an outpatient. Imaging was obtained with results showing suspicion for osteomyelitis prompting him to present to the emergency room today. On evaluation in the emergency room he denies any medical complaints. He denies chest pain, shortness of breath, abdominal pain, nausea, vomiting, diarrhea, headaches or depressed mood. PAST MEDICAL HISTORY: #HTN PAST SURGICAL HISTORY: #tonsillectomy #hernia repairs #right shoulder rotator cuff repair SOCIAL HISTORY: Denies alcohol or nicotine abuse. FAMILY HISTORY: Reviewed and non-contributory. ALLERGIES: Please see below. REVIEW OF SYSTEMS: Negative except as per HPI. HOME MEDICATIONS: Please see below. PHYSICAL EXAMINATION: Vital Signs: reviewed General: NAD, lying comfortably in bed HEENT: NC/AT, EOMI Neck: supple, no masses Chest: lungs CTA B/L Heart: +S1S2, RRR Abd: soft, NT, ND, +BS Ext: no edema, left 4th toe open ulcer, some purulent drainage Skin: no rashes MSK: full ROM at large joints Neuro: no gross focal deficits Psych: AAOx3 LABORATORY DATA: See below. A/P: 70 year old male admitted for osteomyelitis of left 4th toe status post trauma. #OM - podiatry consultation pending - NPO/IV fluids - Vancomycin/Zosyn - xray completed in ED #HTN - continue lisinopril and HCTZ #DVT prophylaxis - mechanical Vital Signs Vital Signs Date Time Temp Pulse Resp B/P (MAP) Pulse Ox O2 Delivery O2 Flow Rate FiO2 06/16/21 13:35 97.3 06/16/21 10:33 99 18 152/83 (106) 97 Room Air Laboratory Data Labs 24H Laboratory Tests 2 06/16/21 13:36: Immature Granulocyte % (Auto) 0.7, Neutrophils (%) (Auto) 62.5, Lymphocytes (%) (Auto) 19.7L, Monocytes (%) (Auto) 12.6H, Eosinophils (%) (Auto) 4.1H, Basophils (%) (Auto) 0.4, Neutrophils # (Auto) 4.3, Lymphocytes # (Auto) 1.4L, Monocytes # (Auto) 0.9H, Eosinophils # (Auto) 0.3, Basophils # (Auto) 0.0, Nucleated Red Blood Cells % (auto) 0.0, Erythrocyte Sedimentation Rate 15, Anion Gap 3L, Glomerular Filtration Rate > 60.0, Uric Acid 7.4H, Calcium Level 9.4, C-Reactive Protein, Quantitative 1.58H CBC/BMP Laboratory Tests 06/16/21 13:36 Home Medications Scheduled Lisinopril/Hydrochlorothiazide (Lisinopril-Hctz 10-12.5 mg Tab) 1 Each Tablet, 1 TAB PO DAILY Scheduled PRN Naproxen (Naproxen) 250 Mg Tablet, 250 MG PO BID PRN for PAIN LEVEL 1-4 Allergies Coded Allergies: No Known Allergies (Unverified , 05/26/21) A-FIB/CHADSVASC A-FIB History Current/History of A-Fib/PAF?: No EBEN PEARSON MD Jun 16, 2021 15:21
--- OUTSIDE RECORDS SUMMARY | 2021-06-16 15:40 | CCD ---
Author Author [facility] Organization [facility] Address Unknown Phone Unavailable Care Team Providers Care Concrete Tester Name Role Phone RONAK, Daniel MADRIGAL INSTRUMENT CALIBRATOR Unavailable Unavailable LAROCK, Daniel MADRIGAL INSTRUMENT CALIBRATOR Unavailable Unavailable LAROCK, Daniel MADRIGAL INSTRUMENT CALIBRATOR Unavailable Unavailable LAROCK, Daniel MADRIGAL INSTRUMENT CALIBRATOR Unavailable Unavailable LAROCK, Daniel MADRIGAL NP Unavailable Unavailable LAROCK, Daniel MADRIGAL NP Unavailable Unavailable LAROCK, Daniel MADRIGAL NP Unavailable Unavailable LAROCK, Daniel MADRIGAL NP Unavailable Unavailable LAROCK, Daniel MADRIGAL NP Unavailable Unavailable LAROCK, Daniel MADRIGAL INSTRUMENT CALIBRATOR Unavailable Unavailable LAROCK, Daniel MADRIGAL INSTRUMENT CALIBRATOR Unavailable Unavailable LAROCK, Daniel MADRIGAL INSTRUMENT CALIBRATOR Unavailable Unavailable LAROCK, Daniel MADRIGAL INSTRUMENT CALIBRATOR Unavailable Unavailable LAROCK, Daniel MADRIGAL INSTRUMENT CALIBRATOR Unavailable Unavailable LAROCK, Daniel MADRIGAL NP Unavailable Unavailable LAROCK, Daniel MADRIGAL INSTRUMENT CALIBRATOR Unavailable Unavailable LAROCK, Daniel MADRIGAL INSTRUMENT CALIBRATOR Unavailable Unavailable LAROCK, Daniel MADRIGAL INSTRUMENT CALIBRATOR Unavailable Unavailable LAROCK, Daniel MADRIGAL INSTRUMENT CALIBRATOR Unavailable Unavailable LAROCK, Daniel MADRIGAL INSTRUMENT CALIBRATOR Unavailable Unavailable LAROCK, Daniel MADRIGAL INSTRUMENT CALIBRATOR Unavailable Unavailable LAROCK, Daniel MADRIGAL INSTRUMENT CALIBRATOR Unavailable Unavailable FORNI, R NGOC DPM Unavailable [...] is protected by Article 27-F of the [facility] Public Health law. If you continue you may have access to information: Regarding HIV / AIDS; Provided by facilities licensed or operated by the [facility] Office of Mental Health; or Provided by the [facility] Office for People With Developmental Disabilities. If such information is present, then the following [facility] mandated warning applies: This information has been [...] law may result in a fine or fci sentence or both. A general authorization for the release of medical or other information is NOT sufficient authorization for further disc losure. Encounters Encounter Providers Location Date Indications Data Source(s ) Outpatient Attender: NGOC PEREZ DPM Family Practice 06/15/2021 0 2:00:00 PM EDT [facility] ([facility]) Outpatient Attender: NGOC PEREZ DPM 2020 01:55:00 PM EDT - 06/15/2021 01:55:00 PM EDT [facility] Outpatient [address] [facility] [address] 06/06/2021 12:00:00 AM EDT [facility]CW1 ([facility]) [place] [address] [facility] [address] 05/30/2021 12:00:00 AM EDT [facility]CW1 [facility]) Outpatient Attender: ROHAN SIMONS NP 08/2020 08:16:47 PM EDT - 05/20/2021 09:30:56 PM EDT [facility] ([facility] ) [place] [address] [facility] [address] 12/27/2020 12:00:00 AM EDT eCW1 ([facility]) [place] [address] [facility] [address] 08/03/2020 12:00:00 AM EST eCW1 ([facility]) [place] [address] [address] 06/02/2020 12:00:00 AM EDT eCW1 ([facility]) [place] [address] [facility] [address] 05/18/2020 12:00:00 AM EDT eCW1 ([facility]) [place] [address] [address] 05/18/2020 12:00:00 AM EDT eCW1 ([facility]) Immunizations Vaccine Date Status Description Data Source(s) COVID-19 VACCINE Moderna 10/30/2020 12:00:00 AM EST completed [facility] Vaccine Series Complete: YESThis Data wa s Submitted to [facility] Via [employer]. COVID-19 VACCINE Moderna 10/01/2020 12:00:00 AM EST completed [facility] Vaccine Series Complete: NOThis Data was Submitted to [facility] Via [employer]. pneumococcal polysaccharide PPV23 08/03/2020 10:54:00 AM EST comple carlos eCW1 ([facility]) pneumococcal polysaccharide PPV23 08/03/2020 10:54:00 AM EST comple carlos eCW1 ([facility]) pneumococcal polysaccharide PPV23 08/03/2020 10:54:00 AM EST comple carlos eCW1 ([facility]) pneumococcal polysaccharide PPV23 08/03/2020 10:54:00 AM EST comple carlos eCW1 ([facility]) Zoster 50mcg/0.5mL Shingrix 08/03/2020 10:53:00 AM EST completed eCW1 ([facility]) Zoster 50mcg/0.5mL Shingrix 08/03/2020 10:53:00 AM EST completed eCW1 ([facility]) Zoster 50mcg/0.5mL Shingrix 08/03/2020 10:53:00 AM EST completed eCW1 ([facility]) Zoster 50mcg/0.5mL (Shingrix) 08/03/2020 10:53:00 AM EST completed eCW1 ([facility]) influenza, recombinant, quadrIvalent,injectable, prese rvative free 08/03/2020 10:52:00 AM EST completed eCW1 ([facility]) influenza, recombinant, quadrIvalent,injectable, prese rvative free 08/03/2020 10:52:00 AM EST completed eCW1 ([facility]) influenza, recombinant, quadrIvalent,injectable, prese rvative free 08/03/2020 10:52:00 AM EST completed eCW1 ([facility]) influenza, recombinant, quadrIvalent,injectable, prese rvative free 08/03/2020 10:52:00 AM EST completed eCW1 ([facility]) Zoster 50mcg/0.5mL Shingrix 05/18/2020 02:01:00 PM EDT completed eCW1 ([facility]) Zoster 50mcg/0.5mL Shingrix 05/18/2020 02:01:00 PM EDT completed eCW1 ([facility]) Zoster 50mcg/0.5mL Shingrix 05/18/2020 02:01:00 PM EDT completed eCW1 ([facility]) Zoster 50mcg/0.5mL (Shingrix) 05/18/2020 02:01:00 PM EDT completed eCW1 ([facility]) Zoster 50mcg/0.5mL (Shingrix) 05/18/2020 02:01:00 PM EDT completed eCW1 ([facility]) Zoster 50mcg/0.5mL (Shingrix) 05/18/2020 02:01:00 PM EDT completed eCW1 ([facility]) Zoster 50mcg/0.5mL (Shingrix) 05/18/2020 02:01:00 PM EDT completed eCW1 ([facility]) Medications No Information Insurance Providers Payer name Policy type / Coverage type Policy ID Covered democrat ID Covered democrat's relationship to murphy Policy Murphy Plan Information [facility] Medicare Medicare Part B [id number] Self [id number] MEDICARE [id number] SP [id number] MEDICARE [place] [id number] 18 [id number] MEDICARE PART A [facility] [id number] 18 [id number] SP [id number] [facility] EMPL [id number] SP [id number] [facility] TRUST [id number] SP [id number] MEDICARE [id number] SP [id number] Problems, Conditions, and Diagnoses Code Display Name Description Problem Type Effective Dates Data Source(s) I10 [id number] Essential hypertension Problem 05/18/2020 12 :00:00 AM EDT eCW1 ([facility]) Surgeries/Procedures Procedure Description Date Indications Data Source(s) OFFICE OUTPATIENT NEW 30 MINUTES 06/15/2021 12:00:00 A M EDT [facility] ([facility]) Immunization: Shingrix 50mcg/0.5mL IM (Zoster) 12:00:00 AM EST eCW1 ([facility]) Immunization: Shingrix 50mcg/0.5mL IM (Zoster) 020 12:00:00 AM EDT eCW1 ([facility]) Results ID Date Data Source [id number] 06/15/2021 08:32:00 PM EDT [facility] [address] [place] [address] PHONE: [phone] FAX: [phone] Name .................. : ZOË Real Acct Number.................. : [id number] ROOM. ................. : Number ................... : [id number] Stay type ............. : CLINIC Discharge Date......... ... : 06/15/21 Admit Date ......... : 06/15/21 Admit Phys .................... : MARISSA Date of ....... : 1950 Family Phys ................... : Phone .................. : [phone] Age ................................ : 70 Film# .................. .:[id number] Sex ................................. : M Unsigned transcriptions are preliminary reports and do not represent a medical or legal document MARISSA [id number] COMPLETE:06/15/21 17:08 [facility] [id number] Reason for Exam: CELLULITIS OF 4TH TOE [...] rce(s) Supporting Document(s) ID Date Data Source [id number] 06/15/2021 04:44:00 PM EDT [facility] Name Value Range Interpretation Code Description Data Jaleesa rce(s) Supporting Document(s) Erythrocyte sedimentation rate by Westergren method 14 mm/hr 0 - 20 [facility] SED RATE REENTER 14 [facility] ID Date Data Source [id number] 06/15/2021 03:58:00 PM EDT [facility] Name Value Range Interpretation Code Description Data Jaleesa rce(s) Supporting Document(s) C reactive protein [Mass/volume] in Serum or Plasma by High sensitivity method 8.42 MG/L 1.00 - 3.00 H [facility] CDC/S HS-CRP CUT-OFF: RELATIVE RISK: <1.0 mg/L Low 1.0 - 3.0 mg/L Average >3.0 mg/L High Optimally, the average of HS-CRP results repeated two weeks apart should be used for risk assessment. ID Date Data Source [id number] 06/15/2021 03:55:00 PM EDT [facility] Name Value Range Interpretation Code Description Data Jaleesa rce(s) Supporting Document(s) CBC W/AUTOMATED DIFF [facility] COMPLETE BLOOD COUNT Leukocytes [#/volume] in Blood by Automated count 7.7 10^3/uL 4.2 - 1 1.0 [facility] Erythrocytes [#/volume] in Blood by Automated count 5.12 10^6/uL 4. 50 - 6.30 [facility] Hemoglobin [Mass/volume] in Blood 15.1 g/dL 14.0 - 16.0 [facility] Hematocrit [Volume Fraction] of Blood by Automated count 45.1 % 4 1.0 - 51.0 [facility] Erythrocyte mean corpuscular volume [Entitic volume] by Auto mated count 88.1 fL 80.0 - 94.0 [facility] Erythrocyte mean corpuscular hemoglobin [Entitic mass] by Automated count 29.5 pg 27.0 - 34.0 [facility] Erythrocyte mean corpuscular hemoglobin concentration [Mass/volume] by Automated count 33.5 g/dL 31.0 - 36.0 [facility] Erythrocyte distribution width [Ratio] by Automated count 12.6 % 11.5 - 14.8 [facility] Platelets [#/volume] in Blood by Automated count 253 10^3/uL 150 - 45 0 [facility] Platelet mean volume [Entitic volume] in Blood by Automated count 8.6 fL 7.4 - 10.4 [facility] Neutrophils/100 leukocytes in Blood by Automated count 68.6 % 37. 0 - 80.0 [facility] Lymphocytes/100 leukocytes in Blood by Manual count 18.5 % 25.0 - 40.0 L [facility] Monocytes/100 leukocytes in Blood by Automated count 10.3 % 3.0 - 8.0 H [facility] Eosinophils/100 leukocytes in Blood by Automated count 2.2 % 0.0 - 7.0 [facility] Basophils/100 leukocytes in Blood by Automated count 0.3 % 0.0 - 2.0 [facility] %IG 0.1 % 0.0 - 0.0 [facility] %[facility] 0.0 % 0.0 - 0.0 [facility] al Neutrophils [#/volume] in Blood by Automated count 5.27 10^3/uL 2.00 - 6.90 [facility] Lymphocytes [#/volume] in Blood by Automated count 1.42 10^3/uL 0.60 - 3.40 [facility] Monocytes [#/volume] in Blood by Automated count 0.79 10^3/uL 0.00 - 0.90 [facility] Eosinophils [#/volume] in Blood by Automated count 0.17 10^3/uL 0.00 - 0.70 [facility] Basophils [#/volume] in Blood by Automated count 0.02 10^3/uL 0.00 - 0.20 [facility] #IG 0.01 10^3/uL 0.00 - 0.10 [facility] #NRBC 0.00 10^3/uL 0.00 - 0.00 [facility] MANUAL DIFF NOT INDICATED [facility] RBC MORPH NOT INDICATED [facility] Procedure Social History Code Duration Value Status Description Data Source(s ) Smoking 06/06/2021 12:00:00 AM EDT Never Smoker completed Never S moker eCW1 ([facility]) Smoking 06/06/2021 12:00:00 AM EDT Never Smoker completed Never S moker eCW1 ([facility]) Smoking 05/18/2020 12:00:00 AM EDT Never Smoker completed Never S moker eCW1 ([facility]) Smoking 05/18/2020 12:00:00 AM EDT Never Smoker completed Never S moker eCW1 ([facility]) Smoking 05/18/2020 12:00:00 AM EDT Never Smoker completed Never S moker eCW1 ([facility]) Smoking 05/18/2020 12:00:00 AM EDT Never Smoker completed Never S moker eCW1 ([facility]) Smoking 05/18/2020 12:00:00 AM EDT Never Smoker completed Never S moker eCW1 ([facility]) Vital Signs ID Date Data Source UNK Name Value Range Interpretation Code Description Data Source(s) Body weight 220.0 [lb_av] 220.0 [lb_av] eCW1 ([facility]) Body weight 99.79 kg 99.79 kg W1 ([facility]) Body height 71.5 [in_i] 71.5 [in_i] W1 ([facility]) Body mass index (BMI) [Ratio] 30.25 kg/m2 30.25 kg/m2 [facility] ([facility]) Heart rate 70 /min 70 /min eCW1 ([facility]) Respiratory rate 18 /min 18 /min eCW1 ([facility]) Body temperature 97.1 [degF] 97.1 [degF] eCW1 ( [facility]) Systolic blood pressure 154 mm[Hg] 154 mm[Hg] e CW1 ([facility]) Diastolic blood pressure 69 mm[Hg] 69 mm[Hg] eCW1 ([facility]) Body weight 218 [lb_av] 218 [lb_av] eCW1 ([facility]) Body weight 98.88 kg 98.88 kg eCW1 ([facility]) Body height 71.5 [in_i] 71.5 [in_i] eCW1 ([facility]) Body mass index (BMI) [Ratio] 29.98 kg/m2 29.98 kg/m2 eCW1 ([facility]) Heart rate 77 /min 77 /min eCW1 ([facility]) Respiratory rate 17 /min 17 /min eCW1 ([facility]) Body temperature 97.1 [degF] 97.1 [degF] eCW1 ( [facility]) Systolic blood pressure 160 mm[Hg] 160 mm[Hg] e CW1 ([facility]) Diastolic blood pressure 80 mm[Hg] 80 mm[Hg] eCW1 ([facility]) Heart rate 63 /min 63 /min eCW1 ([facility]) Systolic blood pressure 153 mm[Hg] 153 mm[Hg] e CW1 ([facility]) Diastolic blood pressure 84 mm[Hg] 84 mm[Hg] eCW1 ([facility]) Body weight 219.8 [lb_av] 219.8 [lb_av] eCW1 ([facility]) Body height 71.5 [in_i] 71.5 [in_i] eCW1 ([facility]) Respiratory rate 17 /min 17 /min eCW1 ([facility]) Body mass index (BMI) [Ratio] 30.23 kg/m2 30.23 kg/m2 eCW1 ([facility]) Body temperature 97.5 [degF] 97.5 [degF] W1 ( [facility])
[2021-06-16] MEDS ORDERED: HOME MED LIST COMPLETE! XX SCH (15:45)
[2021-06-16 16:06] LABS: RSV AMPLIFICATION NEGATIVE (NEGATIVE)
[2021-06-16 17:30] VITALS: BP 144/78
[2021-06-16 22:00] VITALS: BP 139/88
[2021-06-16] MEDS: PIPERACILLIN/TAZOBACTAM SOD 3.375 GM in D5W MINI-BAG PLUS 50 ML IV SCH (22:14)
[2021-06-17] VITALS (8 sets, daily range): BP systolic 110–144; BP diastolic 70–86
[2021-06-17] MEDS: VANCOMYCIN HCL 750 MG, VIAL MATE ADAPTER 1 EACH in NS 250 ML IV SCH ×4 (00:16→15:13)
[2021-06-17] MEDS: PIPERACILLIN/TAZOBACTAM SOD 3.375 GM in D5W MINI-BAG PLUS 50 ML IV SCH ×4 (03:36→21:03)
[2021-06-17 07:12] LABS: HEMATOCRIT 42.1 % (42.0-52.0); HEMOGLOBIN 13.9 g/dl (13.5-17.5); MEAN CORPUSCULAR HEMOGLOBIN 29.8 pg (27.0-33.0); MEAN CORPUSCULAR VOLUME 90.1 fl (80.0-96.0); PLATELET COUNT, AUTOMATED 208 10^3/uL (150-450); RED BLOOD COUNT 4.67 10^6/uL (4.30-6.10); WHITE BLOOD COUNT 5.1 10^3/uL (4.0-10.0)
[2021-06-17 07:48] LABS: ALBUMIN 3.4 GM/DL (3.2-5.2); ALT/SGPT 24 U/L (12-78); BILIRUBIN,TOTAL 0.6 MG/DL (0.2-1.0); BLOOD UREA NITROGEN 17 MG/DL (7-18); CALCIUM LEVEL 8.9 MG/DL (8.8-10.2); CARBON DIOXIDE LEVEL 32 MEQ/L (21-32); CHLORIDE LEVEL 108 MEQ/L (98-107); CREATININE FOR GFR 1.19 MG/DL (0.70-1.30); GLOMERULAR FILTRATION RATE > 60.0 (>49); GLUCOSE, FASTING 91 MG/DL (70-100); POTASSIUM SERUM 4.5 MEQ/L (3.5-5.1); SODIUM LEVEL 144 MEQ/L (136-145); TOTAL PROTEIN 6.1 GM/DL (6.4-8.2)
--- NOTE | 2021-06-17 08:28 | IPNPDOC ---
Text Note Date of Service The patient was seen on 06/17/21. NOTE Subjective: Patient seen and examined at bedside. No acute overnight events reported. Patient voices no new medical complaints this morning. Objective: Vital Signs: reviewed General: NAD, lying comfortably in bed HEENT: NC/AT, EOMI Neck: supple, no masses Chest: lungs CTA B/L Heart: +S1S2, RRR Abd: soft, NT, ND, +BS Ext: no edema, left 4th toe open ulceration Skin: no rashes MSK: full ROM at large joints Neuro: no gross focal deficits Psych: AAOx3 A/P: 70 year old male admitted for osteomyelitis of left 4th toe status post trauma. #OM - podiatry consultation pending - plan for OR for toe amputation today - NPO/IV fluids - Vancomycin/Zosyn #HTN - continue lisinopril and HCTZ #DVT prophylaxis - mechanical VS,Fishbone, I+O VS, Fishbone, I+O Laboratory Tests 06/16/21 13:36 06/17/21 06:40 Vital Signs Date Time Temp Pulse Resp B/P (MAP) Pulse Ox O2 Delivery O2 Flow Rate FiO2 06/17/21 06:00 98.2 68 17 133/86 (102) 99 Room Air I&O- Last 24 Hours up to 6 AM 06/17/21 06:00 Intake Total 1000 ml Output Total 0 ml Balance 1000 ml EBEN PEARSON MD Jun 17, 2021 08:28
[2021-06-17] MEDS: hydroCHLOROthiazide 12.5 MG CAPSULE PO SCH (09:34)
--- NOTE | 2021-06-17 09:41 | CR ---
CONSULTATION DATE: 06/16/2021 REASON FOR CONSULTATION: Toe infection. HISTORY OF PRESENT ILLNESS: Hair Lama is a 70-year-old male who was admitted through the ER due to worsening infection of the left 4th toe. He has had pain, redness and wound for several weeks and has noticed it has been getting worse. PAST MEDICAL HISTORY: 1. Hypertension. 2. History of gout. PAST SURGICAL HISTORY: 1. Hernia repair. 2. Right shoulder rotator cuff repair. ALLERGIES: No known drug allergies. SOCIAL HISTORY: Denies tobacco and alcohol use. FAMILY HISTORY: Noncontributory. REVIEW OF SYSTEMS: Negative for nausea, vomiting, fever or chills. VITALS: He has been afebrile. LABORATORY DATA: White blood cell count 5.1. CRP 1.58. IMAGING DATA: X-rays are reviewed. On the left 4th toe, there is cortical destruction of the middle and distal phalanx with soft tissue swelling consistent with osteomyelitis. PHYSICAL EXAMINATION: Lower extremity examination: There is erythema and edema of the left 4th toe with a dorsal wound with probe to bone. There does appear to be gouty tophi within the wound. ASSESSMENT: A 70-year-old male with gout and left 4th toe osteomyelitis. PLAN: Discussion had with patient. Patient states he would like the toe removed to prevent any worsening infection, which is reasonable given that there has already been erosive destruction to his 4th toe bone. We will plan to have him nothing by mouth at midnight for surgery tomorrow for 4th toe amputation.
[2021-06-17] MEDS ORDERED: BUPIVACAINE HCL 0.5% 10ML VIAL As Ordered ONE (10:50)
[2021-06-17] MEDS ORDERED: LIDOCAINE 1% MDV 20ML VIAL As Ordered ONE (10:50)
[2021-06-17] MEDS ORDERED: ONDANSETRON 4MG/2ML VIAL As Ordered ONE (11:22)
[2021-06-17] MEDS ORDERED: propofoL 200 MG/20 ML VIAL As Ordered ONE (11:22)
[2021-06-17] MEDS ORDERED: MIDAZOLAM INJ 2MG/2ML VIAL (J2250 PER 1MG) As Ordered ONE (11:22)
[2021-06-17] MEDS ORDERED: KETAMINE HCL 200 MG/20 ML VIAL As Ordered ONE (11:22)
[2021-06-17] MEDS ORDERED: fentaNYL 100 MCG/2 ML INJECTION (J3010) As Ordered ONE (11:22)
[2021-06-17] MEDS ORDERED: LIDOCAINE 2% 100MG/5ML SDV (FOR ANES.) As Ordered ONE (11:22)
[2021-06-17] MEDS ORDERED: GLYCOPYRROLATE INJ 0.2 MG/ML 2 ML VIAL As Ordered ONE (11:31)
[2021-06-17] MEDS ORDERED: ONDANSETRON 4MG/2ML VIAL IV PRN (12:20)
[2021-06-17] MEDS ORDERED: oxyCODONE 5MG TAB PO PRN (12:20)
[2021-06-17] MEDS ORDERED: fentaNYL 100 MCG/2 ML INJECTION (J3010) IV PRN (12:20)
[2021-06-17] MEDS ORDERED: LR 1,000 ML IV SCH (12:20)
--- NOTE | 2021-06-17 13:34 | RO ---
OPERATIVE NOTE DATE OF OPERATION: 06/17/2021 PREOPERATIVE DIAGNOSIS: Left fourth toe infection. POSTOPERATIVE DIAGNOSIS: Left fourth toe infection. PROCEDURE: Left fourth toe amputation. SURGEON: KRISS STRAUSS DPM DOCTOR OF MEDICINE: None. ANESTHESIA: Monitored anesthesia care. Preoperative injection of 10 ml of a 1:1 mixture of 1% lidocaine plain, 1/2% Marcaine plain. ESTIMATED BLOOD LOSS: Minimal. MATERIAL: 3-0 nylon. INJECTABLES: None. SPECIMEN: Left fourth toe, anaerobic and aerobic cultures. CONSULTATIONS: None. CONDITION: Stable. INDICATIONS: Hair Lama is a 70-year-old male who is admitted with an infection of his left fourth toe. He had x-rays consistent with erosive changes to his fourth toe. The decision was made to bring him to the Operating Room for fourth toe amputation. DESCRIPTION OF PROCEDURE: The patient site were identified and marked in the preop area, consent was reviewed and obtained of risks, complications and alternatives to the procedure explained to the patient and alternatives to the procedure explained to the patient in detail, all questions were answered. The patient was brought to the operating room and placed on operating table in supine position. Monitored anesthesia care was delivered by the anesthesia team. Preop injection of 10 mL of 1:1 mixture of 1% Lidocaine plain and 0.5% Marcaine plain was injected into the left foot. The left foot was prepped and draped in a normal sterile fashion. No tourniquet was used during the procedure. The four toe was disarticulated using #15 blade of the metarsophalngeal joint. The dorsal wound was inspected. There were gouty tophi within the wound. Aerobic and anaerobic cultures were taken of the wound. The toe was sent for pathology. The site was irritated with normal saline and the incision was repaired with 3-0 nylon. Sterile dressings were applied. The patient was brought to the PACU with vital signs stable and neurovascular status intact. He will be admitted to the floor for antibiotics.
[2021-06-18 01:39] VITALS: BP 116/70
[2021-06-18] MEDS ORDERED: PERCOCET 5MG/325MG TAB PO PRN ×2 (02:55)
[2021-06-18] MEDS ORDERED: ACETAMINOPHEN TAB 650MG DOSE (2X325MG) PO PRN (02:55)
[2021-06-18] MEDS: PIPERACILLIN/TAZOBACTAM SOD 3.375 GM in D5W MINI-BAG PLUS 50 ML IV SCH ×2 (03:15→09:45)
[2021-06-18] MEDS ORDERED: VANCOMYCIN HCL 750 MG, VIAL MATE ADAPTER 1 EACH in NS 250 ML IV SCH (05:00)
[2021-06-18] MEDS ORDERED: VANCOMYCIN HCL 500 MG in D5W MINI-BAG PLUS 100 ML IV SCH (06:00)
[2021-06-18 06:04] VITALS: BP 116/71
[2021-06-18 07:00] LABS: BASO % 0.3 % (0.0-1.0); EOS # 0.4 10^3/uL (0.0-0.5); EOS % 4.7 % (0.0-3.0); HEMATOCRIT 39.3 % (42.0-52.0); HEMOGLOBIN 12.9 g/dl (13.5-17.5); LYMPH # 1.6 10^3/uL (1.5-5.0); LYMPH % 21.8 % (24.0-44.0); MEAN CORPUSCULAR HEMOGLOBIN 29.3 pg (27.0-33.0); MEAN CORPUSCULAR HGB CONC 32.8 g/dl (32.0-36.5); MEAN CORPUSCULAR VOLUME 89.3 fl (80.0-96.0); MONO # 0.7 10^3/uL (0.0-0.8); MONO % 9.6 % (2.0-8.0); NEUTROPHILS # 4.7 10^3/uL (1.5-8.5); NEUTROPHILS % 63.5 % (36.0-66.0); PLATELET COUNT, AUTOMATED 204 10^3/uL (150-450); WHITE BLOOD COUNT 7.4 10^3/uL (4.0-10.0)
[2021-06-18 07:20] LABS: ALBUMIN 3.2 GM/DL (3.2-5.2); BILIRUBIN,TOTAL 0.5 MG/DL (0.2-1.0); C REACTIVE PROTEIN QUANTITATIV 0.75 MG/DL (0.00-0.30); CALCIUM LEVEL 8.8 MG/DL (8.8-10.2); CREATININE FOR GFR 1.31 MG/DL (0.70-1.30); GLOMERULAR FILTRATION RATE 57.8 (>49); POTASSIUM SERUM 4.5 MEQ/L (3.5-5.1); TOTAL PROTEIN 5.8 GM/DL (6.4-8.2)
[2021-06-18 07:59] LABS: ERYTHROCYTE SEDIMENTATION RATE 13 mm/hr (0-20)
[2021-06-18] MEDS ORDERED: CEPH500C PO (09:03)
[2021-06-18 09:46] VITALS: BP 120/71
[2021-06-18] MEDS: hydroCHLOROthiazide 12.5 MG CAPSULE PO SCH (09:46)
--- NOTE | 2021-06-18 11:56 | DS.PDOC ---
Discharge Summary General Date of Admission Jun 16, 2021 at 15:10 Date of Discharge 06/18/21 Discharge Summary PROCEDURES PERFORMED DURING STAY: TOE AMPUTATION DISCHARGE DIAGNOSES: #osteomyelitis #HTN COMPLICATIONS/CHIEF COMPLAINT: Osteomyelitis. HISTORY OF PRESENT ILLNESS:70-year-old male sent to ED for findings of osteomyelitis with his left 4th toe on outpatient imaging. Patient's history goes back to roughly 6 months ago where he states he stubbed his toe. However, over the last 4 weeks he has had increasing erythema and pain. He was seen in the ER on 05/26/2021 and discharged home with Keflex and doxycycline. His symptoms continue to worsen and he was seen by house cleaner supervisor in [place] as an outpatient. Imaging was obtained with results showing suspicion for osteomyelitis prompting him to present to the emergency room today. On evaluation in the emergency room he denies any medical complaints. He denies chest pain, shortness of breath, abdominal pain, nausea, vomiting, diarrhea, headaches or depressed mood. HOSPITAL COURSE: He was admitted for further evaluation and treatment. Patient was seen in consultation by podiatry. On admission he was started on parenteral antibiotic therapy. He underwent amputation of his left fourth toe due to underlying osteomyelitis. His osteomyelitis myelitis was deemed to be possibly secondary to a gouty attack. Hospital stay was otherwise unremarkable. Patient discharged home as per podiatry Daljit with outpatient follow-up. DISCHARGE MEDICATIONS: Please see below. ALLERGIES: Please see below. PHYSICAL EXAMINATION ON DISCHARGE: Vital Signs: reviewed General: NAD, lying comfortably in bed HEENT: NC/AT, EOMI Neck: supple, no masses Chest: lungs CTA B/L Heart: +S1S2, RRR Abd: soft, NT, ND, +BS Ext: no edema, bandages in place on left foot Skin: no rashes MSK: full ROM at large joints Neuro: no gross focal deficits Psych: AAOx3 LABORATORY DATA: Please see below. DISPOSITION: Discharge home DISCHARGE INSTRUCTIONS: 1. Follow-up with primary care provider in 3 to 5 days 2. Follow-up with podiatry in 3 to 5 days 3. Wound care as directed per podiatry DISCHARGE CONDITION: [Stable]. TIME SPENT ON DISCHARGE: 35 minutes. Vital Signs/I&Os Vital Signs Date Time Temp Pulse Resp B/P (MAP) Pulse Ox O2 Delivery O2 Flow Rate FiO2 06/18/21 09:46 120/71 06/18/21 06:04 98.1 64 16 96 Room Air I&O- Last 24 Hours up to 6 AM 06/18/21 05:59 Intake Total 650 ml Output Total 5 ml Balance 645 ml Laboratory Data Labs 24H Laboratory Tests 2 06/17/21 22:59: Vancomycin Level Trough 21.0H 06/18/21 06:42: Immature Granulocyte % (Auto) 0.1, Neutrophils (%) (Auto) 63.5, Lymphocytes (%) (Auto) 21.8L, Monocytes (%) (Auto) 9.6H, Eosinophils (%) (Auto) 4.7H, Basophils (%) (Auto) 0.3, Neutrophils # (Auto) 4.7, Lymphocytes # (Auto) 1.6, Monocytes # (Auto) 0.7, Eosinophils # (Auto) 0.4, Basophils # (Auto) 0.0, Nucleated Red Blood Cells % (auto) 0.0, Erythrocyte Sedimentation Rate 13, Anion Gap 3L, Glomerular Filtration Rate 57.8, Calcium Level 8.8, Total Bilirubin 0.5, Aspartate Amino Transf (AST/SGOT) 17, Alanine Aminotransferase (ALT/SGPT) 23, Alkaline Phosphatase 59, C-Reactive Protein, Quantitative 0.75H, Total Protein 5.8L, Albumin 3.2, Albumin/Globulin Ratio 1.2 CBC/BMP Laboratory Tests 06/18/21 06:42 Microbiology Microbiology 06/17/21 Gram Stain - Final, Resulted 06/17/21 Wound Culture, Resulted Pending 06/17/21 Anaerobic Culture, Resulted Pending 06/16/21 Blood Culture - Preliminary, Resulted No growth after 24 hours . All specim... 06/16/21 Blood Culture - Preliminary, Resulted No growth after 24 hours . All specim... Discharge Medications Scheduled Cephalexin (Cephalexin) 500 Mg Capsule, 500 MG PO BID Lisinopril/Hydrochlorothiazide (Lisinopril-Hctz 10-12.5 mg Tab) 1 Each Tablet, 1 TAB PO DAILY, (Reported) Allergies Coded Allergies: No Known Allergies (Unverified , 05/26/21) EBEN PEARSON MD Jun 18, 2021 11:56
[2021-06-18] MEDS ORDERED: AUGM875T28 PO (16:20)
== END 2021-06-18 12:40 | disposition home or self-care (01) | DRG 505 ==
LOC: M ED 10:33 → M ED INP 15:10 → ENRESERV 16:22 → M MS5PR 17:34
PROVIDERS: ADMIT Internal Medicine; ATTEND Internal Medicine
PROC: 0Y6W0Z0 Detachment at Left 4th Toe, Complete, Open Approach (ICD-10-PCS; principal; 2021-06-17 11:30)
DX: M86.9 Osteomyelitis, unspecified (principal); M1A.0721 Idiopathic chronic gout, left ankle and foot, with tophus (tophi); I10 Essential (primary) hypertension; Z79.899 Other long term (current) drug therapy

== ENCOUNTER → 2021-10-18 | Outpatient (CLI) | payer MEDICARE, OTHER ==
[~2021-10-18] MED LIST changes: +AUGM875T28 PO; -LISI10TA15 PO; +LISI10TA24 PO
== END ==
LOC: M WUC 11:09
PROVIDERS: ATTEND Podiatrist Foot & Ankle Surgery
DX: M10.072 Idiopathic gout, left ankle and foot (principal)

== ENCOUNTER → 2021-12-26 | Outpatient (CLI) | payer MEDICARE, OTHER | LOC: M RAD 13:29 | PROVIDERS: ATTEND Surgery | DX: D17.1 Benign lipomatous neoplasm of skin and subcutaneous tissue of trunk (principal) ==

== ENCOUNTER → 2022-01-18 | Outpatient (REF) | payer MEDICARE, OTHER ==
[2022-01-18 13:39] LABS: CHOLESTEROL RISK RATIO 4.851 (<5)
== END ==
LOC: M WUC 12:13
PROVIDERS: ATTEND Nurse Practitioner Family
DX: E78.2 Mixed hyperlipidemia (principal); M10.9 Gout, unspecified

== ENCOUNTER → 2022-01-18 | Outpatient (REF) | payer MEDICARE, OTHER | LOC: M WUC 12:20 | PROVIDERS: ATTEND Podiatrist Foot & Ankle Surgery | DX: M10.9 Gout, unspecified (principal) ==

== ENCOUNTER → 2022-02-14 | Outpatient (CLI) | payer MEDICARE, OTHER ==
[~2022-02-14] MED LIST changes: +ALLO100T; +HYDR12.55 PO; +LISI10TA22 PO; +NAPR-855 PO; +PRAV20TA2 PO
== END ==
LOC: M EKG 06:30
PROVIDERS: ATTEND Anesthesiology
DX: I10 Essential (primary) hypertension (principal)

== ENCOUNTER → 2022-02-23 | Outpatient (CLI) | payer MEDICARE, OTHER | LOC: M LABSMTC 09:21 | PROVIDERS: ATTEND Anesthesiology | DX: Z01.812 Encounter for preprocedural laboratory examination (principal); Z11.52 Encounter for screening for COVID-19 ==

== ENCOUNTER 2022-02-24 08:48 | Day surgery (SDC) | payer MEDICARE, OTHER ==
[~2022-02-24] VITALS: Ht 180.3 cm; Wt 98.3 kg
[~2022-02-24 08:48] MED LIST changes: +CelecoXIB 400 MG CAP PO SCH; +ceFAZolin SOD 2 GM in IV 1 EA IV ONE
[2022-02-24] MEDS ORDERED: LR 1,000 ML IV SCH (09:50)
[2022-02-24] MEDS ORDERED: ONDANSETRON 4MG 2ML VIAL As Ordered ONE (11:19)
[2022-02-24] MEDS ORDERED: LIDOCAINE 2% INJ 100 MG/5 ML SYRINGE As Ordered ONE (11:19)
[2022-02-24] MEDS ORDERED: propofoL 200 MG/20 ML VIAL As Ordered ONE ×2 (11:19→11:20)
[2022-02-24] MEDS ORDERED: fentaNYL 100 MCG/2 ML INJECTION As Ordered ONE (11:19)
[2022-02-24] MEDS ORDERED: MIDAZOLAM INJ 2MG/2ML VIAL (J2250 PER 1MG) As Ordered ONE (11:19)
[2022-02-24] MEDS ORDERED: KETOROLAC 60MG 2ML VIAL As Ordered ONE (11:19)
[2022-02-24] MEDS ORDERED: LIDOCAINE 1% SDV 30ML VIAL As Ordered ONE (11:53)
[2022-02-24] MEDS ORDERED: BUPIVACAINE HCL 0.25% 30ML VIAL As Ordered ONE (11:53)
[2022-02-24 13:30] VITALS: BP 150/74
== END 2022-02-24 13:50 | disposition home or self-care (01) ==
LOC: M SDC 08:48
PROVIDERS: ATTEND Surgery
DX: D17.1 Benign lipomatous neoplasm of skin and subcutaneous tissue of trunk (principal); I10 Essential (primary) hypertension; M10.9 Gout, unspecified; E78.00 Pure hypercholesterolemia, unspecified; Z79.899 Other long term (current) drug therapy; Z79.1 Long term (current) use of non-steroidal anti-inflammatories (NSAID); Z88.8 Allergy status to other drugs, medicaments and biological substances
CPT/HCPCS: 11406; 88304; J0690; J1885; J2250; J2405; J3010

== ENCOUNTER → 2022-03-20 | Outpatient (CLI) | payer MEDICARE, OTHER ==
[~2022-03-20] MED LIST changes: +APPL300T4 PO; -CelecoXIB 400 MG CAP PO SCH; +[UNRECOGNIZED DRUG - OTHER]; -ceFAZolin SOD 2 GM in IV 1 EA IV ONE
== END ==
LOC: M RAD 09:02
PROVIDERS: ATTEND Family Medicine
DX: N28.1 Cyst of kidney, acquired (principal)

== ENCOUNTER → 2022-04-20 | Outpatient (REF) | payer MEDICARE, OTHER | LOC: M SFHCDERM 14:39 | PROVIDERS: ATTEND Nurse Practitioner Family | DX: D22.71 Melanocytic nevi of right lower limb, including hip (principal) ==

== ENCOUNTER → 2022-04-27 | Outpatient (CLI) | payer MEDICARE, OTHER ==
[~2022-04-27] MED LIST changes: +PROHANCE 279.3MG/ML 15ML VIAL As Ordered ONE; +PROHANCE 279.3MG/ML 5ML VIAL As Ordered ONE
== END ==
LOC: M RAD 13:20
PROVIDERS: ATTEND Internal Medicine Medical Oncology
DX: D18.09 Hemangioma of other sites (principal)
CPT/HCPCS: 74183; A9576

== ENCOUNTER → 2022-11-16 | Outpatient (REF) | payer MEDICARE, OTHER ==
[~2022-11-16] MED LIST changes: -DOXY-342 PO; +DOXY100C81 PO; -PROHANCE 279.3MG/ML 15ML VIAL As Ordered ONE; -PROHANCE 279.3MG/ML 5ML VIAL As Ordered ONE
[2022-11-16 19:24] LABS: APPEARANCE, URINE CLOUDY (CLEAR); BACTERIA, URINE AUTO 1+ (NEGATIVE); BILIRUBIN, URINE AUTO NEGATIVE (NEGATIVE); BLOOD, URINE BLOOD 3+ (NEGATIVE); COLOR, URINE AMBER (YELLOW); GLUCOSE, URINE (UA) AUTO NEGATIVE (NEGATIVE); KETONE, URINE AUTO NEGATIVE (NEGATIVE); LEUKOCYTE ESTERASE, URINE AUTO 3+ (NEGATIVE); MUCUS, URINE SMALL (NEGATIVE); NITRITE, URINE AUTO NEGATIVE (NEGATIVE); PROTEIN, URINE AUTO 2+ mg/dL (NEGATIVE); RBC, URINE AUTO TNTC /HPF (0-3); SPECIFIC GRAVITY URINE AUTO 1.023 (1.002-1.035); SQUAMOUS EPITHELIAL CELL UR AU 0 /HPF (0-6); UROBILINOGEN, URINE AUTO 0.2 mg/dL (0.0-2.0); WBC, URINE AUTO TNTC /HPF (0-3)
== END ==
LOC: M SFHCLERA 11:15
PROVIDERS: ATTEND Physician Assistant
DX: R30.0 Dysuria (principal)

== ENCOUNTER → 2022-12-12 | Outpatient (REF) | payer MEDICARE, OTHER ==
[2022-12-12 10:29] LABS: URIC ACID 7.8 MG/DL (3.7-9.2)
[2022-12-12 10:32] LABS: BLOOD UREA NITROGEN 23 MG/DL (9-23); CALCIUM LEVEL 9.2 MG/DL (8.3-10.6); CARBON DIOXIDE LEVEL 30 MMOL/L (20-31); CHLORIDE LEVEL 107 MMOL/L (98-107); CHOLESTEROL LEVEL 235 MG/DL (<200); CREATININE FOR GFR 1.01 MG/DL (0.70-1.30); GLOMERULAR FILTRATION RATE > 60.0 (>42); GLUCOSE, FASTING 85 MG/DL (74-106); HDL CHOLESTEROL 48.9 MG/DL (>40); LDL CHOLESTEROL 158.1 MG/DL (<100); NON-HDL-C 186.1 MG/DL; POTASSIUM SERUM 4.7 MMOL/L (3.5-5.1); SODIUM LEVEL 142 MMOL/L (136-145); TRIGLYCERIDES LEVEL 140 MG/DL (<150)
== END ==
LOC: M LABWUC 09:31
PROVIDERS: ATTEND Family Medicine
DX: E78.2 Mixed hyperlipidemia (principal); I10 Essential (primary) hypertension; M1A.9XX0 Chronic gout, unspecified, without tophus (tophi)

== ENCOUNTER → 2022-12-21 | Outpatient (CLI) | payer MEDICARE, OTHER | LOC: M WHC 06:50 | PROVIDERS: ATTEND Physician Assistant | DX: N30.90 Cystitis, unspecified without hematuria (principal) ==

== ENCOUNTER → 2023-01-05 | Outpatient (CLI) | payer MEDICARE, OTHER | LOC: M PLAIMG 15:22 | PROVIDERS: ATTEND Physician Assistant | DX: M16.11 Unilateral primary osteoarthritis, right hip (principal) ==

== ENCOUNTER → 2023-06-27 | Outpatient (CLI) | payer MEDICARE, OTHER ==
[~2023-06-27] MED LIST changes: -DOXY100C81 PO; +DOXY100C82 PO
[2023-06-27 13:02] LABS: BASO % 0.3 % (0.0-1.0); EOS # 0.1 10^3/uL (0.0-0.5); EOS % 1.7 % (0.0-3.0); HEMATOCRIT 45.9 % (42.0-52.0); HEMOGLOBIN 15.4 g/dl (13.5-17.5); LYMPH # 1.5 10^3/uL (1.5-5.0); LYMPH % 26.1 % (24.0-44.0); MEAN CORPUSCULAR HEMOGLOBIN 29.9 pg (27.0-33.0); MEAN CORPUSCULAR HGB CONC 33.6 g/dl (32.0-36.5); MEAN CORPUSCULAR VOLUME 89.1 fl (80.0-96.0); MONO # 0.5 10^3/uL (0.0-0.8); MONO % 8.3 % (2.0-8.0); NEUTROPHILS # 3.7 10^3/uL (1.5-8.5); NEUTROPHILS % 63.4 % (36.0-66.0); PLATELET COUNT, AUTOMATED 259 10^3/uL (150-450); RED BLOOD COUNT 5.15 10^6/uL (4.30-6.10); WHITE BLOOD COUNT 5.8 10^3/uL (4.0-10.0)
[2023-06-27 13:09] LABS: URIC ACID 5.9 MG/DL (3.7-9.2)
[2023-06-27 13:12] LABS: PROTHROMBIN TIME 12.9 SECONDS (12.5-14.5)
[2023-06-27 13:16] LABS: ALBUMIN 4.1 G/DL (3.2-5.2); ALKALINE PHOSPHATASE 83 U/L (46-116); ALT/SGPT 15 U/L (7.0-40); AST/SGOT 15 U/L (<34); BILIRUBIN,TOTAL 0.7 MG/DL (0.3-1.2); BLOOD UREA NITROGEN 20 MG/DL (9-23); CALCIUM LEVEL 9.4 MG/DL (8.3-10.6); CARBON DIOXIDE LEVEL 31 MMOL/L (20-31); CHLORIDE LEVEL 104 MMOL/L (98-107); CHOLESTEROL LEVEL 205 MG/DL (<200); CREATININE FOR GFR 0.89 MG/DL (0.70-1.30); GLOMERULAR FILTRATION RATE > 60.0 (>42); GLUCOSE, FASTING 74 MG/DL (74-106); HDL CHOLESTEROL 52.5 MG/DL (>40); LDL CHOLESTEROL 122.3 MG/DL (<100); NON-HDL-C 152.5 MG/DL; POTASSIUM SERUM 4.4 MMOL/L (3.5-5.1); SODIUM LEVEL 142 MMOL/L (136-145); TOTAL PROTEIN 6.8 G/DL (5.7-8.2); TRIGLYCERIDES LEVEL 151 MG/DL (<150)
== END ==
LOC: M WUC 08:31
PROVIDERS: ATTEND Family Medicine
DX: M1A.9XX0 Chronic gout, unspecified, without tophus (tophi) (principal); E78.2 Mixed hyperlipidemia; T14.8XXA Other injury of unspecified body region, initial encounter

== ENCOUNTER → 2023-09-20 | Outpatient (CLI) | payer MEDICARE, OTHER | LOC: M WUC 09:18 | PROVIDERS: ATTEND Physician Assistant | DX: Z12.5 Encounter for screening for malignant neoplasm of prostate (principal) | CPT/HCPCS: 36415; G0103 ==

== ENCOUNTER → 2023-12-27 | Outpatient (REF) | payer MEDICARE, OTHER ==
[2023-12-27 14:44] LABS: ALBUMIN 3.8 G/DL (3.2-5.2); ALKALINE PHOSPHATASE 74 U/L (46-116); ALT/SGPT 17 U/L (7.0-40); AST/SGOT 15 U/L (<34); BLOOD UREA NITROGEN 19 MG/DL (9-23); CALCIUM LEVEL 9.1 MG/DL (8.3-10.6); CARBON DIOXIDE LEVEL 30 MMOL/L (20-31); CHLORIDE LEVEL 108 MMOL/L (98-107); CHOLESTEROL LEVEL 192 MG/DL (<200); CHOLESTEROL RISK RATIO 3.48 (<5); GLOMERULAR FILTRATION RATE > 60.0 (>42); GLUCOSE, FASTING 84 MG/DL (74-106); HDL CHOLESTEROL 55.1 MG/DL (>40); LDL CHOLESTEROL 111.7 MG/DL (<100); NON-HDL-C 136.9 MG/DL; POTASSIUM SERUM 4.4 MMOL/L (3.5-5.1); SODIUM LEVEL 144 MMOL/L (136-145); TOTAL PROTEIN 6.4 G/DL (5.7-8.2); TRIGLYCERIDES LEVEL 126 MG/DL (<150)
[2023-12-27 14:50] LABS: URIC ACID 6.7 MG/DL (3.7-9.2)
== END ==
LOC: M LABWUC 12:28
PROVIDERS: ATTEND Family Medicine
DX: E78.2 Mixed hyperlipidemia (principal); M1A.9XX0 Chronic gout, unspecified, without tophus (tophi)

== ENCOUNTER → 2024-10-14 | Outpatient (CLI) | payer MEDICARE, OTHER | LOC: M WUC 08:56 | PROVIDERS: ATTEND Physician Assistant | DX: Z12.5 Encounter for screening for malignant neoplasm of prostate (principal) | CPT/HCPCS: 36415; G0103 ==

== ENCOUNTER → 2024-12-25 | Outpatient (REF) | payer MEDICARE, OTHER ==
[~2024-12-25] MED LIST changes: +DOXY-442 PO; -DOXY100C82 PO
[2024-12-25 12:46] LABS: BASO % 0.4 % (0.0-1.0); EOS # 0.1 10^3/uL (0.0-0.5); EOS % 1.8 % (0.0-3.0); HEMATOCRIT 45.5 % (42.0-52.0); HEMOGLOBIN 15.7 g/dl (13.5-17.5); LYMPH # 1.5 10^3/uL (1.5-5.0); LYMPH % 25.6 % (24.0-44.0); MEAN CORPUSCULAR HEMOGLOBIN 30.8 pg (27.0-33.0); MEAN CORPUSCULAR HGB CONC 34.5 g/dl (32.0-36.5); MEAN CORPUSCULAR VOLUME 89.4 fl (80.0-96.0); MONO # 0.6 10^3/uL (0.0-0.8); MONO % 9.9 % (2.0-8.0); NEUTROPHILS # 3.5 10^3/uL (1.5-8.5); NEUTROPHILS % 62.1 % (36.0-66.0); PLATELET COUNT, AUTOMATED 229 10^3/uL (150-450); RED BLOOD COUNT 5.09 10^6/uL (4.30-6.10); WHITE BLOOD COUNT 5.7 10^3/uL (4.0-10.0)
[2024-12-25 12:52] LABS: TOTAL 25(OH) VITAMIN D 45.1 NG/ML (20.0-100.0)
[2024-12-25 12:59] LABS: ALBUMIN 4.3 G/DL (3.2-5.2); BILIRUBIN,TOTAL 0.9 MG/DL (0.3-1.2); CALCIUM LEVEL 9.2 MG/DL (8.3-10.6); CHOLESTEROL RISK RATIO 4.87 (<5); CREATININE FOR GFR 0.96 MG/DL (0.70-1.30); GLOMERULAR FILTRATION RATE 83.5 (>42); HDL CHOLESTEROL 52.9 MG/DL (>40); LDL CHOLESTEROL 181.9 MG/DL (<100); NON-HDL-C 205.1 MG/DL; POTASSIUM SERUM 4.5 MMOL/L (3.5-5.1); TOTAL PROTEIN 7.1 G/DL (5.7-8.2)
[2024-12-25 13:02] LABS: HEMOGLOBIN A1c 5.2 % (4.0-6.0)
[2024-12-25 13:04] LABS: URIC ACID 8.5 MG/DL (3.7-9.2)
[2024-12-25 13:09] LABS: CREATININE, URINE 99.2 MG/DL
[2024-12-25 13:11] LABS: MALB URINE SIEMENS < 3.0 MG/L
== END ==
LOC: M LABWUC 11:43
PROVIDERS: ATTEND Family Medicine
DX: Z00.00 Encounter for general adult medical examination without abnormal findings (principal); I10 Essential (primary) hypertension; M1A.9XX0 Chronic gout, unspecified, without tophus (tophi); E78.2 Mixed hyperlipidemia; Z79.899 Other long term (current) drug therapy

== ENCOUNTER → 2025-04-20 | Outpatient (REF) | payer MEDICARE, OTHER ==
[~2025-04-20] MED LIST changes: -PRAV20TA2 PO; +PRAV20TA78 PO
== END ==
LOC: M WUC 12:02
PROVIDERS: ATTEND Nurse Practitioner Family
DX: R30.0 Dysuria (principal)